=== PATIENT | male | born 1955 | race Caucasian/White ===

== ENCOUNTER 2017-10-04 23:02 | Emergency (ER) | payer MEDICARE ==
[2017-10-04] MEDS ORDERED: BENADRYL 50 MG/ML IV ONE (23:20)
[2017-10-04] MEDS ORDERED: TORAdol 30 mg Injection IV ONE (23:20)
[2017-10-04 23:29] VITALS: PULSE 68; O2SAT 95
[2017-10-04] MEDS ORDERED: Sodium Chloride 0.9% 1000 ML 1,000 ML IV SCH (23:30)
--- NOTE | 2017-10-04 23:31 | ERPHSYRPT ---
- History of Present Illness Time Seen by Provider: 10/04/17 23:23 Source: patient Exam Limitations: no limitations Physician History: Pt has a history of seizures, developed diffuse headaches around 10 AM today. He is c/o sinus pressures, earaches over the past few days. He and his state, he has been having similar headaches usually before the seizure starts. He did not have a seizure for about 10 months, he takes 1500mg Keppra BID, and Lamictal 25 mg BID. He denies recent fall, trauma, no focal weakness, numbness, visual changes, vomiting, but nauseated and dizzy, had difficulty walking, and slurred speech earlier according to his . His gave him Tylenol at 5 PM. Timing/Duration: hour(s) (13) Quality: dullness, throbbing Head Pain Location: global Severity of Pain-Max: moderate Severity of Pain-Current: moderate Recent Head Trauma: no recent headache/trauma, occasional headaches Modifying Factors: Improves With: movement Associated Symptoms: dizziness, nausea/vomiting, seizures, trouble walking Previous symptoms: same symptoms as today Allergies/Adverse Reactions: Penicillins Allergy (Verified 10/04/17 23:09) Home Medications: Alprazolam 0.5 mg [xanAX 0.5 MG] 0.5 mg PO DAILY 10/04/17 [History] Bisoprolol/Hydrochlorothiazide [Bisoprolol-Hctz 10-6.25 mg Tab] 1 tab PO DAILY 10/04/17 [History] Pravastatin Sodium 40 mg PO HS 10/04/17 [History] Sertraline HCl 100 mg PO DAILY 10/04/17 [History] lamoTRIgine [Lamotrigine] 25 mg PO BID 10/04/17 [History] levETIRAcetam [Levetiracetam] 2 tab PO BID 10/04/17 [History] - Review of Systems Constitutional: No Symptoms Ears, Nose, & Throat: Ear Pain, Sinus Drainage Respiratory: Dyspnea, No Cough Cardiac: No Chest Pain, No Edema Abdominal/Gastrointestinal: Nausea, No Abdominal Pain, No Vomiting Neurological: Dizziness, Headache, Seizure, Speech Changes, Vertigo, No Focal Weakness, No Lethargy, No Parasthesia All Other Systems: Reviewed and Negative - Nursing Vital Signs Nursing Vital Signs: Initial Vital Signs Pulse Rate 68 10/04/17 23:10 Blood Pressure 154/93 10/04/17 23:10 O2 Sat by Pulse Oximetry 95 10/04/17 23:10 Pain Scale Pain Intensity 1 - Physical Exam General Appearance: no apparent distress Eye Exam: PERRL/EOMI, eyes nml inspection Ears, Nose, Throat Exam: normal ENT inspection, TMs normal, pharynx normal, moist mucous membranes Neck Exam: normal inspection, non-tender, supple, full range of motion, No carotid bruit, No JVD Respiratory Exam: normal breath sounds, lungs clear, airway intact, No chest tenderness Cardiovascular Exam: regular rate/rhythm, normal heart sounds, normal peripheral pulses, No murmur Gastrointestinal/Abdominal Exam: soft, normal bowel sounds, No tenderness Back Exam: normal inspection, No CVA tenderness Extremity Exam: normal inspection Mental Status Exam: alert, oriented x 3, cooperative, No lethargy shape carver Exam: normal hearing, normal speech, PERRL, No facial droop Coordination/Gait Exam: normal finger to nose, normal gait, normal cerebellar function Motor/Sensory Exam: no motor deficit Skin Exam: normal color, warm, dry, No rash Lymphatic Exam: No adenopathy SpO2 Interpretation: normal Oxygen Delivery: Room Air - Course Nursing assessment & vital signs reviewed: Yes EKG Interpreted by Me: RATE (66/min), NORMAL AXIS, NORMAL INTERVALS, Non- specific ST Changes - CT Exams Head CT Interpretation: Negative, Tele-radiologist Report Ordered Tests: Active Orders 24 hr Category Date Time Status Employment Supervisor STAT Care 10/04/17 23:21 Active EKG-ER Only STAT Care 10/04/17 23:22 Active IV Insertion STAT Care 10/04/17 23:20 Active Oxygen-ED Only NASAL CANNULA 2 lpm Care 10/04/17 23:20 Active HEAD WITHOUT CONTRAST [CT] Stat Exams 10/04/17 23:20 Taken CBC W DIFF Stat Lab 10/04/17 23:30 Completed CMP Stat Lab 10/04/17 23:30 Completed Erythrocyte Sedimentation Rate Stat Lab 10/04/17 23:30 Completed MAGNESIUM Stat Lab 10/04/17 23:30 Completed NT PRO BNP Stat Lab 10/04/17 23:30 Completed PROTIME WITH INR Stat Lab 10/04/17 23:30 Completed TROPONIN Q3H Lab 10/04/17 23:30 Completed TROPONIN Q3H Lab 10/05/17 02:30 Ordered TROPONIN Q3H Lab 10/05/17 05:30 Ordered TROPONIN Q3H Lab 10/05/17 08:30 Ordered TROPONIN Q3H Lab 10/05/17 11:30 Ordered UA W/ MICROSCOPIC Stat Lab 10/04/17 00:30 Completed Urine Triage Profile Stat Lab 10/04/17 23:20 Completed Medication Summary Generic Name Dose Route Start Last Admin Trade Name Freq PRN Reason Stop Dose Admin Sodium Chloride 1,000 mls @ 100 mls/hr 10/04/17 23:30 10/04/17 23:43 Sodium Chloride 0.9% 1000 Ml IV 11/03/17 23:29 100 mls/hr .Q10H SHERIN Administration Discontinued Medications Generic Name Dose Route Start Last Admin Trade Name Freq PRN Reason Stop Dose Admin Diphenhydramine HCl 25 mg 10/04/17 23:20 10/04/17 23:43 Benadryl 50 Mg/Ml IV 10/04/17 23:21 25 mg STAT ONE Administration Diphenhydramine HCl Confirm 10/04/17 23:38 Benadryl 50 Mg/Ml Administered 10/04/17 23:39 Dose 50 mg .ROUTE .STK-MED ONE Ketorolac Tromethamine 30 mg 10/04/17 23:20 10/04/17 23:44 Toradol 30 Mg Injection IV 10/04/17 23:21 30 mg STAT ONE Administration Ketorolac Tromethamine Confirm 10/04/17 23:38 Toradol 30 Mg Injection Administered 10/04/17 23:39 Dose 30 mg .ROUTE .STK-MED ONE Lab/Rad Data: Laboratory Result Diagrams 10/04/17 23:30 10/04/17 23:30 Laboratory Results 10/05/17 10/04/17 10/04/17 Range/Units 00:30 23:30 23:30 WBC (4.0-10.5) K/mm3 RBC (4.1-5.6) M/mm3 Hgb (12.5-18.0) gm/dl Hct (42-50) % MCV (78-100) fl MCH (26-32) pg MCHC (32-36) g/dl RDW (11.5-14.0) % Plt Count (150-450) K/mm3 MPV (6-9.5) fl Gran % (36.0-66.0) % Eos # (Auto) (0-0.5) Absolute Lymphs (auto) (1.0-4.6) Absolute Monos (auto) (0.0-1.3) Lymphocytes % (24.0-44.0) % Monocytes % (0.0-12.0) % Eosinophils % (0.00-5.0) % Basophils % (0.0-0.4) % Absolute Granulocytes (1.4-6.9) Basophils # (0-0.4) ESR (0-15) mm/hr PT 11.9 (8.83-12.87) SECONDS INR 1.02 (0.8-3.0) Sodium (137-145) mmol/L Potassium (3.5-5.1) mmol/L Chloride (98-107) mmol/L Carbon Dioxide (22-30) mmol/L Anion Gap (5-15) MEQ/L BUN (9-20) mg/dL Creatinine (0.66-1.25) mg/dL Estimated GFR ML/MIN Glucose (74-106) mg/dL Calcium (8.4-10.2) mg/dL Magnesium (1.6-2.3) mg/dL Total Bilirubin (0.2-1.3) mg/dL AST (17-59) U/L ALT (0-50) U/L Alkaline Phosphatase (38-126) U/L Troponin I < 0.012 (0.000-0.034) ng/mL NT-Pro-B Natriuret Pep (0-900) pg/mL Serum Total Protein (6.3-8.2) g/dL Albumin (3.5-5.0) g/dL Ur Collection Type Urine Color (YELLOW) Urine Appearance (CLEAR) Urine pH (5-6) Ur Specific [place] (1.005-1.025) Urine Protein (Negative) Urine Ketones (NEGATIVE) Urine Blood (0-5) Patrice/ul Urine Nitrite (NEGATIVE) Urine Bilirubin (NEGATIVE) Urine Urobilinogen (0-1) mg/dL Ur Leukocyte Esterase (NEGATIVE) Urine Microscopic WBC (0-5) /HPF Ur Epithelial Cells (FEW) /HPF Calcium Oxalate Crystal (NEGATIVE) /HPF Urine Mucus (NEGATIVE) /HPF Urine Culture Reflexed (NO) Urine Glucose (NEGATIVE) mg/dL Urine Opiates Level NEGATIVE (NEGATIVE) Ur Methadone NEGATIVE (NEGATIVE) Urine Barbiturates NEGATIVE (NEGATIVE) Ur Phencyclidine (PCP) NEGATIVE (NEGATIVE) Urine Amphetamine NEGATIVE (NEGATIVE) U Benzodiazepine Level POSITIVE (NEGATIVE) Urine Cocaine NEGATIVE (NEGATIVE) Urine Marijuana (THC) NEGATIVE (NEGATIVE) Specimen Received 10/04/17 10/04/17 10/04/17 Range/Units 23:30 23:30 00:30 WBC 8.4 (4.0-10.5) K/mm3 RBC 4.95 (4.1-5.6) M/mm3 Hgb 14.8 (12.5-18.0) gm/dl Hct 42.7 (42-50) % MCV 86.3 (78-100) fl MCH 29.9 (26-32) pg MCHC 34.7 (32-36) g/dl RDW 13.3 (11.5-14.0) % Plt Count 144 L (150-450) K/mm3 MPV 12.2 H (6-9.5) fl Gran % 52.9 (36.0-66.0) % Eos # (Auto) 0.34 (0-0.5) Absolute Lymphs (auto) 3.08 (1.0-4.6) Absolute Monos (auto) 0.53 (0.0-1.3) Lymphocytes % 36.6 (24.0-44.0) % Monocytes % 6.3 (0.0-12.0) % Eosinophils % 4.0 (0.00-5.0) % Basophils % 0.2 (0.0-0.4) % Absolute Granulocytes 4.44 (1.4-6.9) Basophils # 0.02 (0-0.4) ESR 7 (0-15) mm/hr PT (8.83-12.87) SECONDS INR (0.8-3.0) Sodium 145 (137-145) mmol/L Potassium 3.7 (3.5-5.1) mmol/L Chloride 106 (98-107) mmol/L Carbon Dioxide 26 (22-30) mmol/L Anion Gap 16.1 H (5-15) MEQ/L BUN 11 (9-20) mg/dL Creatinine 0.73 (0.66-1.25) mg/dL Estimated GFR > 60.0 ML/MIN Glucose 143 H (74-106) mg/dL Calcium 9.9 (8.4-10.2) mg/dL Magnesium 1.8 (1.6-2.3) mg/dL Total Bilirubin 0.30 (0.2-1.3) mg/dL AST 21 (17-59) U/L ALT 22 (0-50) U/L Alkaline Phosphatase 122 (38-126) U/L Troponin I (0.000-0.034) ng/mL NT-Pro-B Natriuret Pep 230 (0-900) pg/mL Serum Total Protein 7.4 (6.3-8.2) g/dL Albumin 4.7 (3.5-5.0) g/dL Ur Collection Type CCMS Urine Color YELLOW (YELLOW) Urine Appearance CLEAR (CLEAR) Urine pH 5.0 (5-6) Ur Specific [place] 1.030 (1.005-1.025) Urine Protein TRACE (Negative) Urine Ketones NEGATIVE (NEGATIVE) Urine Blood NEGATIVE (0-5) Patrice/ul Urine Nitrite NEGATIVE (NEGATIVE) Urine Bilirubin NEGATIVE (NEGATIVE) Urine Urobilinogen NORMAL (0-1) mg/dL Ur Leukocyte Esterase NEGATIVE (NEGATIVE) Urine Microscopic WBC 2-5 (0-5) /HPF Ur Epithelial Cells FEW (FEW) /HPF Calcium Oxalate Crystal 0-2 (NEGATIVE) /HPF Urine Mucus SLIGHT (NEGATIVE) /HPF Urine Culture Reflexed NO (NO) Urine Glucose NEGATIVE (NEGATIVE) mg/dL Urine Opiates Level (NEGATIVE) Ur Methadone (NEGATIVE) Urine Barbiturates (NEGATIVE) Ur Phencyclidine (PCP) (NEGATIVE) Urine Amphetamine (NEGATIVE) U Benzodiazepine Level (NEGATIVE) Urine Cocaine (NEGATIVE) Urine Marijuana (THC) (NEGATIVE) Specimen Received 10-05-17 0040 - Progress Progress: improved Air Movement: good Progress Note: 10/05/17 00:56 Pt states his headaches resolved, feels better, denies dizziness, he ambulates alone, without ataxia, feels stable, no vertigo, nausea, chest pain or SOB, no fever. I discussed our results with him, he feels stable to go home and follow up with his doctor next week. I suggested to keep taking his seizure medications without change, return if severe headaches, dizziness, vomiting, or difficulty walking! Counseled pt/family regarding: lab results, diagnosis, need for follow-up, rad results - Departure Time of Disposition: 00:58 Departure Disposition: Home Clinical Impression: Generalized headaches Condition: Stable Critical Care Time: No Referrals: MARTIN MORALES MD [Primary Care Provider] - Instructions: Headache, Adult (DC), Seizures, Adult (DC) Additional Instructions: Rest x 1-2 days, drink plenty of fluids, follow up with your physician in 2-3 days, return if severe headaches, nausea, dizziness, difficulty walking or seizures!
[2017-10-04 23:33] LABS: BASOPHIL % 0.2 % (0.0-0.4); Basophil (Absolute #) 0.02 (0-0.4); Eosinophil (Absolute #) 0.34 (0-0.5); Granulocyte Absolute (ANC) 4.44 (1.4-6.9); Granulocytes % 52.9 % (36.0-66.0); Hematocrit 42.7 % (42-50); Hemoglobin 14.8 gm/dl (12.5-18.0); Lymphocyte (Absolute #) 3.08 (1.0-4.6); Lymphocytes % 36.6 % (24.0-44.0); Mean Cell Volume 86.3 fl (78-100); Mean Corpuscular Hemoglobin 29.9 pg (26-32); Mean Corpuscular Hgb Concent. 34.7 g/dl (32-36); Mean Platelet Volume 12.2 fl (6-9.5); Monocyte (Absolute #) 0.53 (0.0-1.3); Monocytes % 6.3 % (0.0-12.0); Platelet Count 144 K/mm3 (150-450); Red Blood Count 4.95 M/mm3 (4.1-5.6); Red Cell Distribution Width 13.3 % (11.5-14.0); White Blood Count 8.4 K/mm3 (4.0-10.5)
[2017-10-04] MEDS ORDERED: BENADRYL 50 MG/ML ONE (23:38)
[2017-10-04] MEDS ORDERED: TORAdol 30 mg Injection ONE (23:38)
[2017-10-04] MEDS ORDERED: Sodium Chloride 0.9% 1000 ML 1,000 ML ONE (23:38)
[2017-10-04 23:57] LABS: INR 1.02 (0.8-3.0)
[2017-10-05 00:01] LABS: Erythrocyte Sedimentation Rate 7 mm/hr (0-15)
[2017-10-05 00:40] VITALS: BP 147/86
[2017-10-05 00:42] LABS: Appearance CLEAR (CLEAR); Bilirubin NEGATIVE (NEGATIVE); Blood NEGATIVE Ery/ul (0-5); Glucose NEGATIVE (NEGATIVE); Ketones NEGATIVE (NEGATIVE); Leukocyte Esterase NEGATIVE (NEGATIVE); Nitrite NEGATIVE (NEGATIVE); Protein,Urine Dip TRACE (Negative); Urobilinogen NORMAL mg/dL (0-1)
[2017-10-05 00:43] LABS: Calcium Oxalate Crystals 0-2 /HPF (NEGATIVE); Epithelial Cells FEW /HPF (FEW); Mucus SLIGHT /HPF (NEGATIVE)
[2017-10-05 00:44] LABS: ALBUMIN 4.7 g/dL (3.5-5.0); ALKALINE PHOSPHATASE 122 U/L (38-126); ANION GAP 16.1 MEQ/L (5-15); BLOOD UREA NITROGEN 11 mg/dL (9-20); CHLORIDE 106 mmol/L (98-107); Calcium 9.9 mg/dL (8.4-10.2); Carbon Dioxide 26 mmol/L (22-30); Creatinine 1 0.73 mg/dL (0.66-1.25); Glucose 143 mg/dL (74-106); NT PRO BNP 230 pg/mL (0-900); Potassium 3.7 mmol/L (3.5-5.1); SGOT/AST 21 U/L (17-59); SGPT/ALT 22 U/L (0-50); SODIUM 145 mmol/L (137-145); Total Protein 7.4 g/dL (6.3-8.2)
[2017-10-05 00:45] LABS: Amphetamine,Urine NEGATIVE (NEGATIVE); Barbiturate,Urine NEGATIVE (NEGATIVE); Benzodiazepine,Urine POSITIVE (NEGATIVE); Cocaine,Urine NEGATIVE (NEGATIVE); Methadone,Urine NEGATIVE (NEGATIVE); Opiate,Urine NEGATIVE (NEGATIVE); PCP,Urine NEGATIVE (NEGATIVE); THC,Urine NEGATIVE (NEGATIVE)
--- NOTE | 2017-10-05 09:03 | XRAY ---
Indication: Headache. No known injury. History of epilepsy. Multiple contiguous axial images obtained through the head without contrast. Comparison: None Normal appearing brain parenchyma, ventricles, and bony calvarium for patient's age. Visualized paranasal sinuses and mastoid air cells are clear. Impression: Normal CT head without contrast exam. Comment: Preliminary interpretation was made by [facility]. No discrepancy. CT DI 70.21
== END 2017-10-05 01:03 | disposition home or self-care (01) ==
LOC: ED 23:02
DX: R51 Headache (principal); R42 Dizziness and giddiness; R11.2 Nausea with vomiting, unspecified; R26.2 Difficulty in walking, not elsewhere classified; Z79.899 Other long term (current) drug therapy
CPT/HCPCS: 36000; 36415; 70450; 80053; 80177; 80307; 81000; 83735; 83880; 84484; 85025; 85610; 85652; 93005; 93041; 96360; 96374; 96375; 99285; J1200; J1885

== ENCOUNTER 2019-10-16 17:46 | Emergency (ER) | payer MEDICARE ==
[2019-10-16] MEDS ORDERED: TORAdol 30 mg Injection IM ONE (18:09)
[2019-10-16 18:11] VITALS: PULSE 68
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
[2019-10-16 18:16] VITALS: O2SAT 98
[2019-10-16] MEDS ORDERED: TORAdol 30 mg Injection ONE (18:29)
[2019-10-16 19:07] VITALS: BP 127/71
[2019-10-16 19:23] LABS: Appearance SLIGHTLY CLOUDY (CLEAR); Bilirubin MODERATE (NEGATIVE); Blood NEGATIVE Ery/ul (0-5); Epithelial Cells RARE /HPF (FEW); Glucose NEGATIVE (NEGATIVE); Hyaline Casts 0-2 /LPF (0-2); Ketones NEGATIVE (NEGATIVE); Leukocyte Esterase TRACE (NEGATIVE); Mucus SLIGHT /HPF (NEGATIVE); Nitrite NEGATIVE (NEGATIVE); Protein,Urine Dip 30 (Negative); RBC 0-2 /HPF (0-2); Specific Gravity 1.023 (1.005-1.025); Urobilinogen 4 mg/dL (0-1)
[2019-10-16 19:28] LABS: Bacteria NONE SEEN /HPF (NEGATIVE)
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
== END 2019-10-16 19:48 | disposition home or self-care (01) ==
LOC: ED 17:46
DX: S39.012A Strain of muscle, fascia and tendon of lower back, initial encounter (principal); V89.2XXA Person injured in unspecified motor-vehicle accident, traffic, initial encounter; Y93.9 Activity, unspecified; Y92.9 Unspecified place or not applicable; M62.830 Muscle spasm of back
CPT/HCPCS: 72100; 81001; 87086; 96372; 99284; J1885

== ENCOUNTER 2020-02-24 18:27 | Emergency (ER) | payer MEDICARE ==
[2020-02-24 18:42] VITALS: O2SAT 99
[2020-02-24] MEDS ORDERED: Sodium Chloride 0.9% 1000 ML 1,000 ML IV STA (18:55)
[2020-02-24] MEDS ORDERED: Sodium Chloride 0.9% 1000 ML 1,000 ML ONE (19:12)
--- NOTE | 2020-02-24 19:14 | ERPHSYRPT ---
- History of Present Illness Historian: patient Exam Limitations: no limitations Patient Subjective Stated Complaint: Pt states that his left abdomen has been hurting for a couple of weeks and hurts when he has a bowel movement and then continues to hurt afterwards, hurts when he eats food Triage Nursing Assessment: Pt brought to the ER by his , vitals wnl, pain with palpatation to the left quadrants, denies blood in stool, denies vomiting, rates pain as 9.5/10, pulses normal, pt does not appear to be in any distress Physician History: 64 yo wm who was Covid+ 2 wks ago presents w periumbilical pain rated a 0 at present and diarrhea since being diagnosed w Covid. He has had nausea wo vomiting/melena/hematochezia/dysuria/hematuria/cough/coryza. Timing/Duration: week(s) (2wks) Activities at Onset: none Quality: aching Abdominal Pain Onset Location: periumbilical Pain Radiation: no radiation Severity of Pain-Max: moderate Severity of Pain-Current: none Modifying Factors: Improves With: movement Associated Symptoms: diarrhea, loss of appetite, nausea, No back, No chest pain, No diaphoresis, No fever/chills, No fatigue, No headache, No heartburn, No neck pain, No rash, No shortness of breath, No syncope, No testicular pain, No vomiting, No weakness Previous symptoms: no prior history Allergies/Adverse Reactions: Penicillins Allergy (Verified 02/24/20 18:41) Home Medications: Alprazolam 0.5 mg [xanAX 0.5 MG] 0.5 mg PO DAILY 10/04/17 [History] Bisoprolol/Hydrochlorothiazide [Bisoprolol-Hctz 10-6.25 mg Tab] 1 tab PO DAILY 10/04/17 [History] Pravastatin Sodium 40 mg PO HS 10/04/17 [History] Sertraline HCl 100 mg PO DAILY 10/04/17 [History] lamoTRIgine [Lamotrigine] 25 mg PO BID 10/04/17 [History] levETIRAcetam [Levetiracetam] 2 tab PO BID 10/04/17 [History] Hx Tetanus, Diphtheria Vaccination/Date Given: No Hx Influenza Vaccination/Date Given: No Hx Pneumococcal Vaccination/Date Given: No Travel Risk - International Travel Have you traveled outside of the country in past 3 weeks: No - Coronavirus Screening Are you exhibiting any of the following symptoms?: No Close contact with a COVID-19 positive Pt in past 14-21 Days: Yes - Review of Systems Constitutional: No Symptoms, Weakness Eyes: No Symptoms Ears, Nose, & Throat: No Symptoms Respiratory: No Symptoms Cardiac: No Symptoms Abdominal/Gastrointestinal: Abdominal Pain, Nausea, Diarrhea, No Vomiting Genitourinary Symptoms: No Symptoms Musculoskeletal: No Symptoms Skin: No Symptoms Neurological: No Symptoms Psychological: No Symptoms Endocrine: No Symptoms Hematologic/Lymphatic: No Symptoms Immunological/Allergic: No Symptoms - Past Medical History Pertinent Past Medical History: Yes Neurological History: Epilepsy Cardiac History: High Cholesterol, Hypertension GI Medical History: GI Bleed, Other Other Medical History: perforated bowel, covid 19 - Past Surgical History Past Surgical History: No - Social History Smoking Status: Former smoker Exposure to second hand smoke: No Drug Use: none Patient Lives Alone: No Significant Family History: no pertinent family hx - Nursing Vital Signs Nursing Vital Signs: Initial Vital Signs Temperature 97.5 F 02/24/20 18:33 Pulse Rate 66 02/24/20 18:33 Blood Pressure 134/81 02/24/20 18:33 O2 Sat by Pulse Oximetry 99 02/24/20 18:33 Pain Scale Pain Intensity 0 - Physical Exam General Appearance: no apparent distress Eye Exam: PERRL/EOMI, eyes nml inspection Ears, Nose, Throat Exam: normal ENT inspection, TMs normal, pharynx normal, moist mucous membranes Neck Exam: normal inspection, non-tender, supple, full range of motion, No meningismus, No mass, No Brudzinski, No Kernig's Respiratory Exam: normal breath sounds, lungs clear, airway intact, No respiratory distress Cardiovascular Exam: regular rate/rhythm, normal heart sounds, normal peripheral pulses, No murmur Gastrointestinal/Abdomen Exam: soft, tenderness (Mild periumbilical ttp/No guarding or rebound) Back Exam: normal inspection, normal range of motion, No CVA tenderness Extremity Exam: normal inspection, normal range of motion Neurologic Exam: alert, oriented x 3, cooperative, 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, normal mood/affect, sensation nml, No motor deficits, No sensory deficit Skin Exam: normal color, warm Lymphatic Exam: No adenopathy SpO2 Interpretation: normal SpO2: 99 O2 Delivery: Room Air Ordered Tests: Active Orders 24 hr Category Date Time Status AMYLASE Stat Lab 02/24/20 19:30 Completed CBC W DIFF Stat Lab 02/24/20 19:30 Completed CMP Stat Lab 02/24/20 19:30 Completed LIPASE Stat Lab 02/24/20 19:30 Completed TROPONIN Q3H Lab 02/24/20 19:30 Completed TROPONIN Q3H Lab 02/24/20 22:00 Ordered UA W/RFX UR CULTURE Stat Lab 02/24/20 19:33 Completed Medication Summary Discontinued Medications Generic Name Dose Route Start Last Admin Trade Name Freq PRN Reason Stop Dose Admin Sodium Chloride 1,000 mls @ 999 mls/hr 02/24/20 18:55 02/24/20 20:26 Sodium Chloride 0.9% 1000 Ml IV 02/24/20 19:55 Infused .Q1H1M STA Infusion Sodium Chloride Confirm 02/24/20 19:12 Sodium Chloride 0.9% 1000 Ml Administered 02/24/20 19:13 Dose 1,000 mls @ ud .ROUTE .STK-MED ONE Lab/Rad Data: Laboratory Result Diagrams 02/24/20 19:30 02/24/20 19:30 Laboratory Results 02/24/20 02/24/20 02/24/20 Range/Units 19:33 19:30 19:30 WBC (4.0-10.5) K/mm3 RBC (4.1-5.6) M/mm3 Hgb (12.5-18.0) gm/dl Hct (42-50) % MCV (78-100) fl MCH (26-32) pg MCHC (32-36) g/dl RDW (11.5-14.0) % Plt Count (150-450) K/mm3 MPV (7.5-11.0) fl Gran % (36.0-66.0) % Eos # (Auto) (0-0.5) Absolute Lymphs (auto) (1.0-4.6) Absolute Monos (auto) (0.0-1.3) Lymphocytes % (24.0-44.0) % Monocytes % (0.0-12.0) % Eosinophils % (0.00-5.0) % Basophils % (0.0-0.4) % Absolute Granulocytes (1.4-6.9) Basophils # (0-0.4) Sodium 137 (137-145) mmol/L Potassium 3.8 (3.5-5.1) mmol/L Chloride 104 (98-107) mmol/L Carbon Dioxide 26 (22-30) mmol/L Anion Gap 11.5 (5-15) MEQ/L BUN 10 (9-20) mg/dL Creatinine 0.59 L (0.66-1.25) mg/dL Estimated GFR > 60.0 ML/MIN Glucose 178 H (74-106) mg/dL Calcium 9.3 (8.4-10.2) mg/dL Total Bilirubin 0.90 (0.2-1.3) mg/dL AST 28 (17-59) U/L ALT 18 (0-50) U/L Alkaline Phosphatase 54 (38-126) U/L Troponin I < 0.012 (0.000-0.034) ng/mL Serum Total Protein 6.6 (6.3-8.2) g/dL Albumin 3.8 (3.5-5.0) g/dL Amylase 46 (30-110) U/L Lipase 105 (23-300) U/L Urine Color YEE (YELLOW) Urine Appearance SLIGHTLY CLOUDY (CLEAR) Urine pH 5.0 (5-6) Ur Specific [place] 1.026 (1.005-1.025) Urine Protein 30 (Negative) Urine Ketones NEGATIVE (NEGATIVE) Urine Blood NEGATIVE (0-5) Patrice/ul Urine Nitrite NEGATIVE (NEGATIVE) Urine Bilirubin MODERATE (NEGATIVE) Urine Urobilinogen 4 (0-1) mg/dL Ur Leukocyte Esterase NEGATIVE (NEGATIVE) Urine WBC (Auto) NONE (0-5) /HPF Urine RBC (Auto) NONE (0-2) /HPF U Epithel Cells (Auto) NONE (FEW) /HPF Urine Bacteria (Auto) NONE (NEGATIVE) /HPF Urine Mucus (Auto) SLIGHT (NEGATIVE) /HPF Urine Culture Reflexed NO (NO) Urine Glucose NEGATIVE (NEGATIVE) mg/dL 02/23/ Range/Units 19:30 WBC 8.0 (4.0-10.5) K/mm3 RBC 4.62 (4.1-5.6) M/mm3 Hgb 13.4 (12.5-18.0) gm/dl Hct 39.6 L (42-50) % MCV 85.7 (78-100) fl MCH 29.0 (26-32) pg MCHC 33.8 (32-36) g/dl RDW 13.0 (11.5-14.0) % Plt Count 249 (150-450) K/mm3 MPV 11.4 H (7.5-11.0) fl Gran % 79.9 H (36.0-66.0) % Eos # (Auto) 0.14 (0-0.5) Absolute Lymphs (auto) 0.95 L (1.0-4.6) Absolute Monos (auto) 0.52 (0.0-1.3) Lymphocytes % 11.8 L (24.0-44.0) % Monocytes % 6.5 (0.0-12.0) % Eosinophils % 1.7 (0.00-5.0) % Basophils % 0.1 (0.0-0.4) % Absolute Granulocytes 6.41 (1.4-6.9) Basophils # 0.01 (0-0.4) Sodium (137-145) mmol/L Potassium (3.5-5.1) mmol/L Chloride (98-107) mmol/L Carbon Dioxide (22-30) mmol/L Anion Gap (5-15) MEQ/L BUN (9-20) mg/dL Creatinine (0.66-1.25) mg/dL Estimated GFR ML/MIN Glucose (74-106) mg/dL Calcium (8.4-10.2) mg/dL Total Bilirubin (0.2-1.3) mg/dL AST (17-59) U/L ALT (0-50) U/L Alkaline Phosphatase (38-126) U/L Troponin I (0.000-0.034) ng/mL Serum Total Protein (6.3-8.2) g/dL Albumin (3.5-5.0) g/dL Amylase (30-110) U/L Lipase (23-300) U/L Urine Color (YELLOW) Urine Appearance (CLEAR) Urine pH (5-6) Ur Specific [place] (1.005-1.025) Urine Protein (Negative) Urine Ketones (NEGATIVE) Urine Blood (0-5) Patrice/ul Urine Nitrite (NEGATIVE) Urine Bilirubin (NEGATIVE) Urine Urobilinogen (0-1) mg/dL Ur Leukocyte Esterase (NEGATIVE) Urine WBC (Auto) (0-5) /HPF Urine RBC (Auto) (0-2) /HPF U Epithel Cells (Auto) (FEW) /HPF Urine Bacteria (Auto) (NEGATIVE) /HPF Urine Mucus (Auto) (NEGATIVE) /HPF Urine Culture Reflexed (NO) Urine Glucose (NEGATIVE) mg/dL - Progress Progress Note: 02/24/20 20:26 Pt painfree during stay and abdomen soft/NTTP before discharge. Symptoms most likely due to Covid19. Will not CT Ab/pelvis at this time, but pt instructed to return to ER if pain returns or if temperature greater than 100.5 develops. 1L NS bolus. Counseled pt/family regarding: lab results, diagnosis, need for follow-up - Departure Departure Disposition: Home Clinical Impression: COVID-19, Diarrhea Condition: Stable Critical Care Time: No Referrals: MARTIN MORALES MD [Primary Care Provider] - Instructions: Acute Abdomen (Belly Pain), Adult (DC) Additional Instructions: Return to ER for increasing abdominal pain or temperature greater than 100.5
[2020-02-24 19:44] LABS: Absolute Neutrophil Ct (ANC) 6.41 (1.4-6.9); BASOPHIL % 0.1 % (0.0-0.4); Basophil (Absolute #) 0.01 (0-0.4); Eosinophil % 1.7 % (0.00-5.0); Eosinophil (Absolute #) 0.14 (0-0.5); Hematocrit 39.6 % (42-50); Hemoglobin 13.4 gm/dl (12.5-18.0); Lymphocyte (Absolute #) 0.95 (1.0-4.6); Lymphocytes % 11.8 % (24.0-44.0); Mean Cell Volume 85.7 fl (78-100); Mean Corpuscular Hgb Concent. 33.8 g/dl (32-36); Mean Platelet Volume 11.4 fl (7.5-11.0); Monocyte (Absolute #) 0.52 (0.0-1.3); Monocytes % 6.5 % (0.0-12.0); Neutrophil % 79.9 % (36.0-66.0); Platelet Count 249 K/mm3 (150-450); Red Blood Count 4.62 M/mm3 (4.1-5.6)
[2020-02-24 20:01] LABS: ALBUMIN 3.8 g/dL (3.5-5.0); ALKALINE PHOSPHATASE 54 U/L (38-126); AMYLASE 46 U/L (30-110); ANION GAP 11.5 MEQ/L (5-15); BLOOD UREA NITROGEN 10 mg/dL (9-20); CHLORIDE 104 mmol/L (98-107); Calcium 9.3 mg/dL (8.4-10.2); Carbon Dioxide 26 mmol/L (22-30); Creatinine 1 0.59 mg/dL (0.66-1.25); EST GLOMERULAR FILTRATION RATE > 60.0 ML/MIN; Glucose 178 mg/dL (74-106); LIPASE 105 U/L (23-300); SGOT/AST 28 U/L (17-59); SGPT/ALT 18 U/L (0-50); SODIUM 137 mmol/L (137-145); Total Protein 6.6 g/dL (6.3-8.2)
[2020-02-24 20:04] LABS: Potassium 3.8 mmol/L (3.5-5.1)
[2020-02-24 20:11] LABS: Appearance SLIGHTLY CLOUDY (CLEAR); Bilirubin MODERATE (NEGATIVE); Blood NEGATIVE Ery/ul (0-5); Glucose NEGATIVE (NEGATIVE); Ketones NEGATIVE (NEGATIVE); Leukocyte Esterase NEGATIVE (NEGATIVE); Mucus SLIGHT /HPF (NEGATIVE); Nitrite NEGATIVE (NEGATIVE); Protein,Urine Dip 30 (Negative); Specific Gravity 1.026 (1.005-1.025); Urobilinogen 4 mg/dL (0-1)
[2020-02-24 20:21] VITALS: BP 134/82; PULSE 79
== END 2020-02-24 20:42 | disposition home or self-care (01) ==
LOC: ED 18:27
DX: R10.32 Left lower quadrant pain (principal); U07.1 COVID-19; R19.7 Diarrhea, unspecified; R11.0 Nausea; E78.5 Hyperlipidemia, unspecified; I10 Essential (primary) hypertension; Z79.899 Other long term (current) drug therapy
CPT/HCPCS: 36000; 36415; 80053; 81001; 82150; 83690; 84484; 85025; 99284

== ENCOUNTER 2021-02-19 15:25 | Emergency (ER) | payer MEDICARE ==
[2021-02-19] MEDS ORDERED: BABY ASPIRIN 81 MG CHEW PO ONE (15:29)
--- NOTE | 2021-02-19 15:42 | ERPHSYRPT ---
- History of Present Illness Time Seen by Provider: 02/19/21 15:35 Historian: patient Exam Limitations: no limitations Patient Subjective Stated Complaint: pt began having chest pain for the past couple of days but then states that he has a heaviness in his left leg and left arm too, pt states that he has been sleeping a lot for the past couple of days Triage Nursing Assessment: Pt brought to the ER by his , hypertensive, rates overall pain as 3/10, states that his pain is a heaviness all on his left side and not really pain, pulses normal, skin n/w/d, no facial droop, no deficits, no difficulty breathing, no cardiac hx, doesn't appear to be in any distress Physician History: This is a 65-year-old white male who is a patient of Dr. Morales and presents with central, substernal chest pressure and heaviness. The chest pain he has is nonradiating. There is also associated left upper and lower extremity he aviness. He says he has been sleeping more in the last 2 to 3 days along with the above symptoms. Patient has a history of anxiety, elevated cholesterol, epilepsy and hypertension. Patient states that he took all his medications today. He is not short of breath. He has no abdominal pain. He has no nausea vomiting or diarrhea. Timing/Duration: day(s) (2 to 3) Activities at Onset: none Quality: pressure, other (Heaviness) Location: substernal, central Chest Pain Radiation: no radiation Severity of Pain-Max: mild Severity of Pain-Current: mild Modifying Factors: Improves With: nothing Associated Symptoms: denies symptoms Prior Chest Pain/Cardiac Workup: no prior chest pain Nitro Today/Relief: no nitro taken today Aspirin Treatment Today: 325 mg x 1, provided by ED Allergies/Adverse Reactions: Penicillins Allergy (Verified 02/19/21 15:42) Home Medications: ALPRAZolam 0.5 MG [xanAX 0.5 MG] 0.5 mg PO DAILY 10/04/17 [History] Bisoprolol/Hydrochlorothiazide [Bisoprolol-Hctz 10-6.25 mg Tab] 1 tab PO DAILY 10/04/17 [History] Pravastatin Sodium 40 mg PO HS 10/04/17 [History] Sertraline HCl 100 mg PO DAILY 10/04/17 [History] lamoTRIgine [Lamotrigine] 25 mg PO BID 10/04/17 [History] levETIRAcetam [Levetiracetam] 2 tab PO BID 10/04/17 [History] Hx Tetanus, Diphtheria Vaccination/Date Given: No Hx Influenza Vaccination/Date Given: No Hx Pneumococcal Vaccination/Date Given: No Travel Risk - International Travel Have you traveled outside of the country in past 3 weeks: No - Coronavirus Screening Are you exhibiting any of the following symptoms?: No Close contact with a COVID-19 positive Pt in past 14-21 Days: No - Vaccine Status Have you recieved a Covid-19 vaccination: Yes 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: [employer] - Vaccination Dates Date of 2cond Vaccination (if applicable): unknown - Review of Systems Constitutional: No Symptoms Eyes: No Symptoms Ears, Nose, & Throat: No Symptoms Respiratory: No Symptoms Cardiac: Chest Pain (Described as pressure and heaviness) Abdominal/Gastrointestinal: No Symptoms Genitourinary Symptoms: No Symptoms Musculoskeletal: Other (Left side heaviness) Skin: No Symptoms Neurological: No Symptoms Psychological: No Symptoms Endocrine: No Symptoms Hematologic/Lymphatic: No Symptoms Immunological/Allergic: No Symptoms All Other Systems: Reviewed and Negative - Past Medical History Pertinent Past Medical History: Yes Neurological History: Epilepsy Cardiac History: High Cholesterol, Hypertension GI Medical History: GI Bleed, Other Other Medical History: perforated bowel, covid 19 - Past Surgical History Past Surgical History: No - Social History Smoking Status: Former smoker Exposure to second hand smoke: No Drug Use: none Patient Lives Alone: No Significant Family History: no pertinent family hx - Nursing Vital Signs Nursing Vital Signs: Initial Vital Signs Temperature 97.2 F 02/19/21 15:26 Pulse Rate 80 02/19/21 15:26 Respiratory Rate 22 02/19/21 15:26 Blood Pressure 178/104 02/19/21 15:26 O2 Sat by Pulse Oximetry 99 02/19/21 15:26 Pain Scale Pain Intensity 3 - Physical Exam General Appearance: no apparent distress, alert Eye Exam: PERRL/EOMI, eyes nml inspection Ears, Nose, Throat Exam: normal ENT inspection, moist mucous membranes Neck Exam: normal inspection, non-tender, supple, full range of motion Respiratory Exam: normal breath sounds, chest tenderness (Described as a substernal nonradiating central heaviness), lungs clear, airway intact, No respiratory distress Cardiovascular Exam: regular rate/rhythm, normal heart sounds, normal peripheral pulses Gastrointestinal/Abdomen Exam: soft, normal bowel sounds, No tenderness Rectal Exam: not done Back Exam: normal inspection, normal range of motion, No CVA tenderness, No vertebral tenderness Extremity Exam: normal inspection, normal range of motion, pelvis stable Neurologic Exam: alert, oriented x 3, cooperative, 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 No significant change from from comparison EKG dated 10/14/2017) Ordered Tests: Active Orders 24 hr Category Date Time Status EKG-ER Only STAT Care 02/19/21 15:29 Active IV Insertion STAT Care 02/19/21 15:29 Active Pulse Oximetry (ED) STAT Care 02/19/21 15:29 Active CHEST 1 VIEW (PORTABLE) Stat Exams 02/19/21 15:29 Completed CHEST WITH CONTRAST [CT] Stat Exams 02/19/21 17:14 Taken HEAD WITHOUT CONTRAST [CT] Stat Exams 02/19/21 15:42 Completed CBC W DIFF Stat Lab 02/19/21 16:04 Completed CMP Stat Lab 02/19/21 16:04 Completed D-DIMER QUANTITATIVE Stat Lab 02/19/21 16:04 Completed NT PRO BNP Stat Lab 02/19/21 16:04 Completed PROTIME WITH INR Stat Lab 02/19/21 16:04 Completed TROPONIN Q3H Lab 02/19/21 16:04 Completed TROPONIN Q3H Lab 02/19/21 18:08 Received TROPONIN Q3H Lab 02/19/21 21:30 Ordered TROPONIN Q3H Lab 02/20/21 00:30 Ordered TROPONIN Q3H Lab 02/20/21 03:30 Ordered Medication Summary Discontinued Medications Generic Name Dose Route Start Last Admin Trade Name Freq PRN Reason Stop Dose Admin Aspirin 324 mg 02/19/21 15:29 02/19/21 15:34 Aspirin 81 Mg Tab.Chew PO 02/19/21 15:30 324 mg STAT ONE Administration Sodium Chloride 500 mls @ 500 mls/hr 02/19/21 17:14 02/19/21 18:44 Sodium Chloride 0.9% 500 Ml IV 02/19/21 18:13 Infused .Q1H ONE Infusion Sodium Chloride Confirm 02/19/21 17:22 Sodium Chloride 0.9% 500 Ml Administered 02/19/21 17:23 Dose 500 mls @ ud IV .STK-MED ONE Lab/Rad Data: Laboratory Result Diagrams 02/19/21 16:04 02/19/21 16:04 Laboratory Results 02/19/21 02/19/21 02/19/21 Range/Units 16:04 16:04 16:04 WBC (4.0-10.5) K/mm3 RBC (4.1-5.6) M/mm3 Hgb (12.5-18.0) gm/dl Hct (42-50) % MCV (78-100) fl MCH (26-32) pg MCHC (32-36) g/dl RDW (11.5-14.0) % Plt Count (150-450) K/mm3 MPV (7.5-11.0) fl Gran % (36.0-66.0) % Eos # (Auto) (0-0.5) Absolute Lymphs (auto) (1.0-4.6) Absolute Monos (auto) (0.0-1.3) Lymphocytes % (24.0-44.0) % Monocytes % (0.0-12.0) % Eosinophils % (0.00-5.0) % Basophils % (0.0-0.4) % Absolute Granulocytes (1.4-6.9) Basophils # (0-0.4) PT 12.0 (9.4-12.5) SECONDS INR 1.02 (0.8-3.0) D-Dimer 810 H* (215-500) ng/mL Sodium 142 (137-145) mmol/L Potassium 3.7 (3.5-5.1) mmol/L Chloride 102 (98-107) mmol/L Carbon Dioxide 30 (22-30) mmol/L Anion Gap 14.3 (5-15) MEQ/L BUN 11 (9-20) mg/dL Creatinine 0.96 (0.66-1.25) mg/dL Estimated GFR > 60.0 ML/MIN Glucose 117 H (74-106) mg/dL Calcium 9.8 (8.4-10.2) mg/dL Total Bilirubin 0.60 (0.2-1.3) mg/dL AST 29 (17-59) U/L ALT 28 (0-50) U/L Alkaline Phosphatase 115 (38-126) U/L Troponin I < 0.012 (0.000-0.034) ng/mL NT-Pro-B Natriuret Pep 424 (0-900) pg/mL Serum Total Protein 8.2 (6.3-8.2) g/dL Albumin 5.1 H (3.5-5.0) g/dL 02/19/21 Range/Units 16:04 WBC 7.6 (4.0-10.5) K/mm3 RBC 5.38 (4.1-5.6) M/mm3 Hgb 16.1 (12.5-18.0) gm/dl Hct 47.2 (42-50) % MCV 87.7 (78-100) fl MCH 29.9 (26-32) pg MCHC 34.1 (32-36) g/dl RDW 13.5 (11.5-14.0) % Plt Count 171 (150-450) K/mm3 MPV 12.6 H (7.5-11.0) fl Gran % 67.7 H (36.0-66.0) % Eos # (Auto) 0.32 (0-0.5) Absolute Lymphs (auto) 1.56 (1.0-4.6) Absolute Monos (auto) 0.55 (0.0-1.3) Lymphocytes % 20.7 L (24.0-44.0) % Monocytes % 7.3 (0.0-12.0) % Eosinophils % 4.2 (0.00-5.0) % Basophils % 0.1 (0.0-0.4) % Absolute Granulocytes 5.11 (1.4-6.9) Basophils # 0.01 (0-0.4) PT (9.4-12.5) SECONDS INR (0.8-3.0) D-Dimer (215-500) ng/mL Sodium (137-145) mmol/L Potassium (3.5-5.1) mmol/L Chloride (98-107) mmol/L Carbon Dioxide (22-30) mmol/L Anion Gap (5-15) MEQ/L BUN (9-20) mg/dL Creatinine (0.66-1.25) mg/dL Estimated GFR ML/MIN Glucose (74-106) mg/dL Calcium (8.4-10.2) mg/dL Total Bilirubin (0.2-1.3) mg/dL AST (17-59) U/L ALT (0-50) U/L Alkaline Phosphatase (38-126) U/L Troponin I (0.000-0.034) ng/mL NT-Pro-B Natriuret Pep (0-900) pg/mL Serum Total Protein (6.3-8.2) g/dL Albumin (3.5-5.0) g/dL - Progress Progress: improved, re-examined Air Movement: good Progress Note: 02/19/21 17:33 Chest x-ray shows no acute cardiopulmonary process. CAT scan of the head shows no acute intracranial abnormalities. There is atrophy and degenerative changes with microischemia within normal limits for age. 02/19/21 18:51 CTA of chest shows no pulmonary embolus or airspace infiltrate. Counseled pt/family regarding: lab results, diagnosis, need for follow-up, rad results - Departure Departure Disposition: Home Clinical Impression: Non-cardiac chest pain Condition: Stable Critical Care Time: No Referrals: MARTIN MORALES MD [Primary Care Provider] - Follow up/PCP as directed Additional Instructions: Take all your medication as prescribed. Follow-up with your primary care physician for further work-up including possible cardiac stress test.
--- NOTE | 2021-02-19 15:56 | XRAY ---
Indication: Chest pain. Comparison: None Portable chest clear. Heart not enlarged. Bony thorax intact with mild osteopenia and old left 4-8 rib fractures.
--- NOTE | 2021-02-19 16:04 | XRAY ---
Indication: Left side numbness. Multiple contiguous axial images obtained through the head without contrast. Comparison: October 04, 2017. Again age-appropriate global atrophy with now mild periventricular degenerative micro-ischemia bilaterally. No acute intracranial hemorrhage, abnormal extra-axial fluid collection, or mass effect. Fourth ventricle is midline without hydrocephalus. Bony calvarium intact. Visualized paranasal sinuses and mastoid air cells are clear. Impression: Atrophy and degenerative micro-ischemia within normal limits for patient's age. No acute intracranial abnormalities.
[2021-02-19 16:16] LABS: Absolute Neutrophil Ct (ANC) 5.11 (1.4-6.9); BASOPHIL % 0.1 % (0.0-0.4); Basophil (Absolute #) 0.01 (0-0.4); Eosinophil % 4.2 % (0.00-5.0); Eosinophil (Absolute #) 0.32 (0-0.5); Hematocrit 47.2 % (42-50); Hemoglobin 16.1 gm/dl (12.5-18.0); INR 1.02 (0.8-3.0); Lymphocyte (Absolute #) 1.56 (1.0-4.6); Lymphocytes % 20.7 % (24.0-44.0); Mean Cell Volume 87.7 fl (78-100); Mean Corpuscular Hemoglobin 29.9 pg (26-32); Mean Corpuscular Hgb Concent. 34.1 g/dl (32-36); Mean Platelet Volume 12.6 fl (7.5-11.0); Monocyte (Absolute #) 0.55 (0.0-1.3); Monocytes % 7.3 % (0.0-12.0); Neutrophil % 67.7 % (36.0-66.0); Platelet Count 171 K/mm3 (150-450); Red Blood Count 5.38 M/mm3 (4.1-5.6); Red Cell Distribution Width 13.5 % (11.5-14.0); White Blood Count 7.6 K/mm3 (4.0-10.5)
[2021-02-19 16:30] LABS: ALBUMIN 5.1 g/dL (3.5-5.0); ALKALINE PHOSPHATASE 115 U/L (38-126); ANION GAP 14.3 MEQ/L (5-15); BLOOD UREA NITROGEN 11 mg/dL (9-20); CHLORIDE 102 mmol/L (98-107); Calcium 9.8 mg/dL (8.4-10.2); Carbon Dioxide 30 mmol/L (22-30); Creatinine 1 0.96 mg/dL (0.66-1.25); EST GLOMERULAR FILTRATION RATE > 60.0 ML/MIN; Glucose 117 mg/dL (74-106); NT PRO BNP 424 pg/mL (0-900); Potassium 3.7 mmol/L (3.5-5.1); SGOT/AST 29 U/L (17-59); SGPT/ALT 28 U/L (0-50); SODIUM 142 mmol/L (137-145); Total Protein 8.2 g/dL (6.3-8.2)
[2021-02-19] MEDS ORDERED: Sodium Chloride 0.9% 500 ML 500 ML IV ONE ×2 (17:14→17:22)
--- NOTE | 2021-02-19 22:20 | XRAY ---
Indication: Chest pain 2 days. Elevated d-dimer. Multiple contiguous axial images obtained through the chest using 100 cc Isovue 370 contrast and PE protocol. Comparison: None There is adequate opacification of the pulmonary arteries to include the lobar and segmental branches. No pulmonary embolus. Heart not enlarged. Aorta is normal in course and caliber. No pathologic mediastinal/hilar lymphadenopathy. Lungs are inflated with minimal bibasilar fibrosis/scarring. No suspicious pulmonary mass, infiltrate, or effusion. Bony thorax intact with minimal degenerative changes throughout the spine and old left lateral 4-8 rib fractures. Limited upper abdomen unremarkable. Impression: Negative pulmonary embolus. Old left rib fractures. Remaining CT chest with contrast exam is negative. Comment: Preliminary interpretation made by C. No critical discrepancy.
[2021-02-22 17:03] VITALS: BP 144/82; PULSE 73; O2SAT 99
== END 2021-02-19 18:56 | disposition home or self-care (01) ==
LOC: ED 15:25
DX: R07.89 Other chest pain (principal); I10 Essential (primary) hypertension; E78.5 Hyperlipidemia, unspecified; G40.909 Epilepsy, unspecified, not intractable, without status epilepticus; Z79.899 Other long term (current) drug therapy; Z86.16 Personal history of COVID-19
CPT/HCPCS: 36000; 36415; 70450; 71045; 71260; 80053; 83880; 84484; 85025; 85379; 85610; 93005; 94760; 96360; 99284; A9270-GY

== ENCOUNTER 2021-06-20 16:44 | Emergency (ER) | payer MEDICARE ==
[2021-06-20 17:12] LABS: WBC 0-2 /HPF (0-5)
[2021-06-20 17:13] LABS: Appearance CLEAR (CLEAR)
[2021-06-20 17:14] LABS: Bacteria NONE SEEN /HPF (NEGATIVE); Bilirubin SMALL (NEGATIVE); Glucose NEGATIVE (NEGATIVE); Ketones NEGATIVE (NEGATIVE); Nitrite NEGATIVE (NEGATIVE); Ph 5.5 (5-6); Protein,Urine Dip NEGATIVE (Negative); RBC MODERATE Ery/ul (0-5); Specific Gravity <=1.005 (1.005-1.025); Urobilinogen 0.2 mg/dL (0-1)
[2021-06-20 18:00] LABS: Absolute Neutrophil Ct (ANC) 5.74 (1.4-6.9); Basophil (Absolute #) 0.02 (0-0.4); Eosinophil % 3.2 % (0.00-5.0); Eosinophil (Absolute #) 0.28 (0-0.5); Hematocrit 41.2 % (42-50); Hemoglobin 14.1 gm/dl (12.5-18.0); Lymphocyte (Absolute #) 2.09 (1.0-4.6); Lymphocytes % 23.8 % (24.0-44.0); Mean Cell Volume 87.8 fl (78-100); Mean Corpuscular Hemoglobin 30.1 pg (26-32); Mean Corpuscular Hgb Concent. 34.2 g/dl (32-36); Mean Platelet Volume 11.5 fl (7.5-11.0); Monocyte (Absolute #) 0.64 (0.0-1.3); Monocytes % 7.3 % (0.0-12.0); Neutrophil % 65.5 % (36.0-66.0); Platelet Count 142 K/mm3 (150-450); Red Blood Count 4.69 M/mm3 (4.1-5.6); Red Cell Distribution Width 13.4 % (11.5-14.0); White Blood Count 8.8 K/mm3 (4.0-10.5)
--- NOTE | 2021-06-20 18:06 | ERPHSYRPT ---
- History of Present Illness Source: patient Exam Limitations: no limitations Patient Subjective Stated Complaint: PT HERE FOR BLOOD IN URINE SINCE LAST NIGHT, NO FEVER OR PAIN Triage Nursing Assessment: PT ALERT, WALKED IN , FACE MASKS ASPPLIED, SKIN W/D/P. NO EDEMA NOTED, HAS BLOOD ON UNDERWEAR, URINE YELLOW, Timing/Duration: yesterday Activites at Onset: other (Urinating) Quality: other (No pain) Onset Location: unknown Pain Radiation: none Severity of Pain-Max: none Severity of Pain-Current: none Modifying Factors: Improves With: nothing, urinating Associated Symptoms: No abdominal pain, No fever, No chills, No diaphoresis, No nausea, No vomiting, No dysuria, No nocturia, No polyuria, No urinary frequency, No loss of bladder control, No lower back pain, No lumps, No mass, No swelling, No syncope Prior abdominal problems: none Sexual intercourse history: non-contributory Hx Tetanus, Diphtheria Vaccination/Date Given: Yes Hx Influenza Vaccination/Date Given: Yes Hx Pneumococcal Vaccination/Date Given: Yes Immunizations Up to Date: Yes <TONI BANKS - Last Filed: 06/20/21 19:02> <JUDY MARTINEZ - Last Filed: 06/20/21 20:10> - History of Present Illness Physician History: 65 yo wm w painless hematuria beginning last night. Pt denies any CVA/Flank pain/anticoagulant use/antiplatelet use/fever/frequency/urgency/stream problems. States that he has not had this problem before. (TONI BANKS) Allergies/Adverse Reactions: Penicillins Allergy (Verified 06/20/21 16:58) Home Medications: ALPRAZolam 0.5 MG [xanAX 0.5 MG] 0.5 mg PO DAILY 10/04/17 [History] Bisoprolol/Hydrochlorothiazide [Bisoprolol-Hctz 10-6.25 mg Tab] 1 tab PO DAILY 10/04/17 [History] Pravastatin Sodium 40 mg PO HS 10/04/17 [History] Sertraline HCl 100 mg PO DAILY 10/04/17 [History] lamoTRIgine [Lamotrigine] 25 mg PO BID 10/04/17 [History] levETIRAcetam [Levetiracetam] 2 tab PO BID 10/04/17 [History] Etodolac 400 mg [Lodine 400 mg] 400 mg PO BID 06/20/21 [History] Metformin HCl 500 mg [Glucophage 500 MG] 1 ea BID 06/20/21 [History] Travel Risk - International Travel Have you traveled outside of the country in past 3 weeks: No - Coronavirus Screening Are you exhibiting any of the following symptoms?: No - Vaccine Status Have you recieved a Covid-19 vaccination: Yes 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[employer] - Vaccination Dates Date of 2cond Vaccination (if applicable): unknown <TONI BANKS - Last Filed: 06/20/21 19:02> - Past Medical History Pertinent Past Medical History: Yes Neurological History: Epilepsy Cardiac History: High Cholesterol, Hypertension GI Medical History: GI Bleed, Other Other Medical History: perforated bowel, covid 19 - Past Surgical History Past Surgical History: No - Social History Smoking Status: Former smoker Exposure to second hand smoke: No Drug Use: none Patient Lives Alone: No Significant Family History: no pertinent family hx <TONI BANKS - Last Filed: 06/20/21 19:02> - Review of Systems Constitutional: No Symptoms Eyes: No Symptoms Ears, Nose, & Throat: No Symptoms Respiratory: No Symptoms Cardiac: No Symptoms Abdominal/Gastrointestinal: No Symptoms Genitourinary Symptoms: No Symptoms, Hematuria Musculoskeletal: No Symptoms Skin: No Symptoms Neurological: No Symptoms Psychological: No Symptoms Endocrine: No Symptoms Hematologic/Lymphatic: No Symptoms Immunological/Allergic: No Symptoms <TONI BANKS - Last Filed: 06/20/21 19:02> - Physical Exam General Appearance: no apparent distress Eye Exam: PERRL/EOMI, eyes nml inspection Ears, Nose, Throat Exam: normal ENT inspection, TMs normal, pharynx normal, moist mucous membranes Neck Exam: normal inspection, non-tender, supple, full range of motion, No meningismus, No mass, No Brudzinski, No Kernig's Respiratory Exam: normal breath sounds, lungs clear, airway intact, No respiratory distress Cardiovascular Exam: regular rate/rhythm, normal heart sounds, normal peripheral pulses, capillary refill <2 sec, No murmur Gastrointestinal/Abdomen Exam: soft, normal bowel sounds, No tenderness Back Exam: normal inspection, normal range of motion, No CVA tenderness, No vertebral tenderness Extremity Exam: normal inspection Neurologic Exam: alert, oriented x 3, cooperative, 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, normal mood/affect, nml station & gait, sensation nml Skin Exam: normal color, warm, dry Lymphatic Exam: No adenopathy SpO2 Interpretation: normal SpO2: 97 O2 Delivery: Room Air <TONI BANKS - Last Filed: 06/20/21 19:02> - Nursing Vital Signs Nursing Vital Signs: Initial Vital Signs Temperature 97.0 F 06/20/21 17:01 Pulse Rate 79 06/20/21 17:01 Respiratory Rate 18 06/20/21 17:01 Blood Pressure 141/86 06/20/21 17:01 O2 Sat by Pulse Oximetry 97 06/20/21 17:01 Pain Scale Pain Intensity 0 Hypertensive (TONI BANKS) - Course Nursing assessment & vital signs reviewed: Yes <JUDY MARTINEZ - Last Filed: 06/20/21 20:10> Ordered Tests: Active Orders 24 hr Category Date Time Status ABDOMEN AND PELVIS W/0 CONTRAS [CT] Stat Exams 06/20/21 18:09 Taken CBC W DIFF Stat Lab 06/20/21 17:57 Completed CMP Stat Lab 06/20/21 17:57 Completed PROTIME WITH INR Stat Lab 06/20/21 17:57 Completed PTT Stat Lab 06/20/21 17:57 Completed Lab/Rad Data: Laboratory Result Diagrams 06/20/21 17:57 06/20/21 17:57 Laboratory Results 06/20/21 06/20/21 06/20/21 Range/Units 17:57 17:57 17:57 WBC 8.8 (4.0-10.5) K/mm3 RBC 4.69 (4.1-5.6) M/mm3 Hgb 14.1 (12.5-18.0) gm/dl Hct 41.2 L (42-50) % MCV 87.8 (78-100) fl MCH 30.1 (26-32) pg MCHC 34.2 (32-36) g/dl RDW 13.4 (11.5-14.0) % Plt Count 142 L (150-450) K/mm3 MPV 11.5 H (7.5-11.0) fl Gran % 65.5 (36.0-66.0) % Eos # (Auto) 0.28 (0-0.5) Absolute Lymphs (auto) 2.09 (1.0-4.6) Absolute Monos (auto) 0.64 (0.0-1.3) Lymphocytes % 23.8 L (24.0-44.0) % Monocytes % 7.3 (0.0-12.0) % Eosinophils % 3.2 (0.00-5.0) % Basophils % 0.2 (0.0-0.4) % Absolute Granulocytes 5.74 (1.4-6.9) Basophils # 0.02 (0-0.4) PT 12.2 (9.4-12.5) SECONDS INR 1.03 (0.8-3.0) APTT 30.0 (25.1-36.5) SECONDS Sodium 139 (137-145) mmol/L Potassium 3.5 (3.5-5.1) mmol/L Chloride 105 (98-107) mmol/L Carbon Dioxide 23 (22-30) mmol/L Anion Gap 14.4 (5-15) MEQ/L BUN 14 (9-20) mg/dL Creatinine 0.76 (0.66-1.25) mg/dL Estimated GFR > 60.0 ML/MIN Glucose 155 H (74-106) mg/dL Calcium 9.5 (8.4-10.2) mg/dL Total Bilirubin 0.60 (0.2-1.3) mg/dL AST 19 (17-59) U/L ALT 16 (0-50) U/L Alkaline Phosphatase 85 (38-126) U/L Serum Total Protein 6.9 (6.3-8.2) g/dL Albumin 4.4 (3.5-5.0) g/dL Urinalys Dipstick Clnc Urine Color (YELLOW) Urine Appearance (CLEAR) Urine pH (5-6) Ur Specific [place] (1.005-1.025) POC Urine Protein Conf (Negative) Urine Ketones (NEGATIVE) Urine Nitrite (NEGATIVE) Urine Bilirubin (NEGATIVE) Urine Urobilinogen (0-1) mg/dL Urine Leukocytes (NEGATIVE) Urine WBC (Auto) (0-5) /HPF Urine RBC (Auto) (0-2) /HPF U Epithel Cells (Auto) (FEW) /HPF Urine Bacteria (Auto) (NEGATIVE) /HPF Urine RBC (0-5) Patrice/ul Ur Culture Indicated? Urine Glucose (NEGATIVE) mg/dL 06/20/21 Range/Units 17:00 WBC (4.0-10.5) K/mm3 RBC (4.1-5.6) M/mm3 Hgb (12.5-18.0) gm/dl Hct (42-50) % MCV (78-100) fl MCH (26-32) pg MCHC (32-36) g/dl RDW (11.5-14.0) % Plt Count (150-450) K/mm3 MPV (7.5-11.0) fl Gran % (36.0-66.0) % Eos # (Auto) (0-0.5) Absolute Lymphs (auto) (1.0-4.6) Absolute Monos (auto) (0.0-1.3) Lymphocytes % (24.0-44.0) % Monocytes % (0.0-12.0) % Eosinophils % (0.00-5.0) % Basophils % (0.0-0.4) % Absolute Granulocytes (1.4-6.9) Basophils # (0-0.4) PT (9.4-12.5) SECONDS INR (0.8-3.0) APTT (25.1-36.5) SECONDS Sodium (137-145) mmol/L Potassium (3.5-5.1) mmol/L Chloride (98-107) mmol/L Carbon Dioxide (22-30) mmol/L Anion Gap (5-15) MEQ/L BUN (9-20) mg/dL Creatinine (0.66-1.25) mg/dL Estimated GFR ML/MIN Glucose (74-106) mg/dL Calcium (8.4-10.2) mg/dL Total Bilirubin (0.2-1.3) mg/dL AST (17-59) U/L ALT (0-50) U/L Alkaline Phosphatase (38-126) U/L Serum Total Protein (6.3-8.2) g/dL Albumin (3.5-5.0) g/dL Urinalys Dipstick Clnc MAIN LAB Urine Color YELLOW (YELLOW) Urine Appearance CLEAR (CLEAR) Urine pH 5.5 (5-6) Ur Specific [place] <=1.005 (1.005-1.025) POC Urine Protein Conf NEGATIVE (Negative) Urine Ketones NEGATIVE (NEGATIVE) Urine Nitrite NEGATIVE (NEGATIVE) Urine Bilirubin SMALL (NEGATIVE) Urine Urobilinogen 0.2 (0-1) mg/dL Urine Leukocytes NEGATIVE (NEGATIVE) Urine WBC (Auto) 0-2 (0-5) /HPF Urine RBC (Auto) NONE (0-2) /HPF U Epithel Cells (Auto) NONE (FEW) /HPF Urine Bacteria (Auto) NONE SEEN (NEGATIVE) /HPF Urine RBC MODERATE (0-5) Patrice/ul Ur Culture Indicated? NO Urine Glucose NEGATIVE (NEGATIVE) mg/dL <TONI BANKS - Last Filed: 06/20/21 19:02> - Progress Progress: unchanged Counseled pt/family regarding: lab results, diagnosis, need for follow-up, rad results <JUDY MARTINEZ - Last Filed: 06/20/21 20:10> - Progress Progress Note: 06/20/21 19:02 Care tuned over to Dr. Martinez at 19:[address] ab-pelvis pending (TONI BANKS) 06/20/21 20:06 CAT scan of the abdomen pelvis shows enlarged prostate without evidence of renal or ureteral stones. The urinary bladder is unremarkable as visualized. Medical decision making: This patient has microscopic hematuria. Although the patient did have some visualized, gross hematuria at home prompting him to come to the emergency department. We will place him on Cipro to treat hemorrhagic cystitis and have him follow-up with urology as an outpatient. (JUDY MARTINEZ) <TONI BANKS - Last Filed: 06/20/21 19:02> - Departure Departure Disposition: Home Critical Care Time: No <JUDY MARTINEZ - Last Filed: 06/20/21 20:10> - Departure Clinical Impression: Hematuria, Hemorrhagic cystitis, Enlarged prostate Condition: Stable Referrals: MARTIN MORALES MD [Primary Care Provider] - Follow up/PCP as directed Additional Instructions: Drink plenty fluids. Take your medication as prescribed. Follow-up with a urologist as an outpatient for further evaluation of your enlarged prostate and for the hematuria that is present. Prescriptions: Ciprofloxacin [Cipro 500 MG] 500 mg PO BID #14 tablet
[2021-06-20 18:07] LABS: INR 1.03 (0.8-3.0); PROTIME 12.2 SECONDS (9.4-12.5)
[2021-06-20 18:11] LABS: ALBUMIN 4.4 g/dL (3.5-5.0); ALKALINE PHOSPHATASE 85 U/L (38-126); ANION GAP 14.4 MEQ/L (5-15); BLOOD UREA NITROGEN 14 mg/dL (9-20); CHLORIDE 105 mmol/L (98-107); Calcium 9.5 mg/dL (8.4-10.2); Carbon Dioxide 23 mmol/L (22-30); Creatinine 1 0.76 mg/dL (0.66-1.25); EST GLOMERULAR FILTRATION RATE > 60.0 ML/MIN; Glucose 155 mg/dL (74-106); Potassium 3.5 mmol/L (3.5-5.1); SGOT/AST 19 U/L (17-59); SGPT/ALT 16 U/L (0-50); SODIUM 139 mmol/L (137-145); Total Protein 6.9 g/dL (6.3-8.2)
[2021-06-20 18:12] LABS: Dipstick done @ ? MAIN LAB
[2021-06-20 19:42] VITALS: BP 123/73; PULSE 62; O2SAT 98
[2021-06-20] MEDS ORDERED: Cipro 500 MG PO ONE (20:05)
[2021-06-20] MEDS ORDERED: Cipro 500 MG ONE (20:12)
--- NOTE | 2021-06-21 08:52 | XRAY ---
Indication: Hematuria. Multiple contiguous axial images obtained through the abdomen and pelvis without contrast using renal stone protocol. Comparison: None. Study slightly degraded by respiration artifact. Lung bases demonstrates mild bibasilar fibrosis/scarring. Heart not enlarged. Small hiatal hernia. No renal calculus or evidence for obstructive uropathy in either system. 1 cm left upper renal cortical cyst. Noncontrasted stomach and bowel loops appear nonobstructed with normal appendix. Minimal descending and sigmoid diverticulosis. No free fluid/air. Enlarged prostate gland impresses on the base of the bladder. Remaining liver, gallbladder, pancreas, spleen, adrenal glands, kidneys, ureters, and bladder are unremarkable for noncontrast exam. Mild scattered aortoiliac calcifications without AAA. Osseous structures intact with mild/moderate degenerative changes throughout the thoracolumbar spine. 2 cm L5 vertebral hemangioma. Impression: 1. Respiration artifact. 2. Negative renal calculus or evidence for obstructive uropathy. 3. Incidental small hiatal hernia, minimal colonic diverticulosis, left renal cyst, enlarged prostate gland, and chronic bony findings. Comment: Preliminary interpretation made by C. No critical discrepancy.
== END 2021-06-20 20:40 | disposition home or self-care (01) ==
LOC: ED 16:44
DX: N30.01 Acute cystitis with hematuria (principal); N40.0 Benign prostatic hyperplasia without lower urinary tract symptoms; E78.5 Hyperlipidemia, unspecified; I10 Essential (primary) hypertension; Z86.16 Personal history of COVID-19; Z79.899 Other long term (current) drug therapy
CPT/HCPCS: 36415; 74176; 80053; 81015; 85025; 85610; 85730; 99284; A9270-GY

== ENCOUNTER 2021-11-21 12:52 | Emergency (ER) | payer MEDICARE ==
--- NOTE | 2021-11-21 14:06 | ERPHSYRPT ---
- History of Present Illness Source: patient Exam Limitations: no limitations Patient Subjective Stated Complaint: C/O cough, fatigue, body aches that started a few days ago. Triage Nursing Assessment: Patient ambulated back to ED. He is alert and oriented and answering questions appropriately. No SOB noted at this time. Patient noted to be hoarse with a forceful, dry, non-productive cough. Cough increases when patient takes a deep breath. Physician History: 66 yo wm w cough/coryza/HAMILTON/myalgias x 3 days. He denies fever/N/V/D/melena/hematochezia. Chest pain is denied, and he has mild DUE. He smokes a pipe. Timing/Duration: gradual onset Severity: mild Prearrival Treatment: no prearrival treatment Modifying Factors: Improves With: coughing Associated Symptoms: cough, headache, No fever, No chills, No change in hearing, No dizziness, No drooling, No ear drainage, No facial pain/swelling, No hearing loss, No jaw pain, No malaise, No motion sickness, No nasal congestion/drainage, No epistaxis, No nasal foreign body, No neck pain, No poor fluid intake, No poor solids intake, No ringing of ears, No swollen glands, No sinus infection, No sore throat, No tooth pain, No difficulty swallowing, No voice change Allergies/Adverse Reactions: Penicillins Allergy (Verified 11/21/21 13:15) Home Medications: ALPRAZolam 0.5 MG [xanAX 0.5 MG] 0.5 mg PO DAILY 10/04/17 [History] Bisoprolol/Hydrochlorothiazide [Bisoprolol-Hctz 10-6.25 mg Tab] 1 tab PO DAILY 10/04/17 [History] Pravastatin Sodium 40 mg PO HS 10/04/17 [History] Sertraline HCl 100 mg PO DAILY 10/04/17 [History] lamoTRIgine [Lamotrigine] 25 mg PO BID 10/04/17 [History] levETIRAcetam [Levetiracetam] 2 tab PO BID 10/04/17 [History] Etodolac 400 mg [Lodine 400 mg] 400 mg PO BID 06/20/21 [History] Metformin HCl 500 mg [Glucophage 500 MG] 1 ea BID 06/20/21 [History] Hx Tetanus, Diphtheria Vaccination/Date Given: Yes Hx Influenza Vaccination/Date Given: No Hx Pneumococcal Vaccination/Date Given: No Immunizations Up to Date: Yes Travel Risk - International Travel Have you traveled outside of the country in past 3 weeks: No - Coronavirus Screening Are you exhibiting any of the following symptoms?: Yes Symptoms: Cough: New Onset, Headaches/Body Aches/Fatigue Close contact with a COVID-19 positive Pt in past 14-21 Days: Yes - Vaccine Status Have you recieved a Covid-19 vaccination: Yes 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[employer] - Vaccination Dates Date of 2cond Vaccination (if applicable): 2020 - Review of Systems Constitutional: No Symptoms, Malaise Eyes: No Symptoms Ears, Nose, & Throat: No Symptoms, Nose Pain, Nose Congestion Respiratory: No Symptoms, Cough, Dyspnea on Exertion (MARKHAM) Cardiac: No Symptoms Abdominal/Gastrointestinal: No Symptoms Genitourinary Symptoms: No Symptoms Musculoskeletal: No Symptoms Skin: No Symptoms Neurological: No Symptoms Psychological: No Symptoms Endocrine: No Symptoms Hematologic/Lymphatic: No Symptoms Immunological/Allergic: No Symptoms - Past Medical History Pertinent Past Medical History: Yes Neurological History: Epilepsy Cardiac History: High Cholesterol, Hypertension GI Medical History: GI Bleed, Other Psycho-Social History: Depression Other Medical History: perforated bowel, covid 19 - Past Surgical History Past Surgical History: No - Social History Smoking Status: Current every day smoker Exposure to second hand smoke: No Drug Use: none Patient Lives Alone: No Significant Family History: no pertinent family hx - Nursing Vital Signs Nursing Vital Signs: Initial Vital Signs Temperature 97.6 F 11/21/21 13:15 Pulse Rate 87 11/21/21 13:15 Respiratory Rate 24 11/21/21 13:15 Blood Pressure 141/79 11/21/21 13:15 O2 Sat by Pulse Oximetry 95 11/21/21 13:15 Pain Scale Pain Intensity 0 Hypertensive - Physical Exam General Appearance: no apparent distress Eye Exam: bilateral eye: normal inspection, PERRL, EOMI Ear Exam: bilateral ear: auricle normal, canal normal, TM normal Nasal Exam: normal inspection Throat Exam: normal, pharynx normal Neck Exam: normal inspection, non-tender, supple, full range of motion, trachea midline, No Brudzinski's sign Cardiovascular/Respiratory Exam: regular rate/rhythm, heart sounds normal, no JVD, rales (Rales L base) Abdominal Exam: non-tender, soft Neurologic Exam: alert, oriented x 3, cooperative, 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, normal mood/affect Skin Exam: normal color, warm, dry SpO2 Interpretation: normal SpO2: 95 O2 Delivery: Room Air - Course Nursing assessment & vital signs reviewed: Yes Lab/Rad Data: Laboratory Results 11/21/21 Range/Units 14:21 Influenza Type A Ag NEGATIVE (NEGATIVE) Influenza Type B Ag NEGATIVE (NEGATIVE) RSV (PCR) NEGATIVE (Negative) SARS-CoV-2 (PCR) POSITIVE A (NEGATIVE) - Progress Progress Note: 11/21/21 15:03 Pt w room air sats in mid 90's w non-labored respirations Counseled pt/family regarding: diagnosis, need for follow-up, smoking cessation - Departure Departure Disposition: Home Clinical Impression: COVID-19 Condition: Stable Critical Care Time: No Referrals: MARTIN MORALES MD [Primary Care Provider] - Follow up/PCP as directed Instructions: Cough, Adult (DC), COVID-19 (DC) Additional Instructions: Start Paxlovid 3 tabs twice a day for 5 days Decadron once a day for 5 days Get a pulse oximeter and monitor oxygen saturation 2-3 times a day Return to ER for persistent oxygen saturation less than 90% Prescriptions: Dexamethasone 4 mg [Decadron 4 MG] 4 mg PO DAILY 5 Days #5 tablet Nirmatrelvir/Ritonavir [Paxlovid 2X150 mg-100 mg (Eua)] 1 each PO BID 5 Days #30 tablet
[2021-11-21 14:16] LABS: INFLUENZA A NEGATIVE (NEGATIVE); INFLUENZA B NEGATIVE (NEGATIVE); RESPIRATORY SYNCTIAL VIRUS NEGATIVE (Negative)
[2021-11-21 14:22] LABS: SARS-CoV-2 Xpert Express POSITIVE (NEGATIVE)
[2021-11-21 14:26] VITALS: BP 123/71
[2021-11-21 14:56] VITALS: PULSE 84
[2021-11-21 15:04] VITALS: O2SAT 95
== END 2021-11-21 14:57 | disposition home or self-care (01) ==
LOC: ED 12:52
DX: U07.1 COVID-19 (principal); R05.1 Acute cough; R09.81 Nasal congestion; R51.9 Headache, unspecified; M79.10 Myalgia, unspecified site; E78.5 Hyperlipidemia, unspecified; I10 Essential (primary) hypertension; Z72.0 Tobacco use; Z79.899 Other long term (current) drug therapy; Z79.52 Long term (current) use of systemic steroids
CPT/HCPCS: 0241U; 99282

== ENCOUNTER 2022-04-07 12:52 | Observation (INO) | payer MEDICARE ==
[2022-04-07] MEDS ORDERED: MORPHINE SULFATE 4 MG INJ IV ONE (13:24)
[2022-04-07] MEDS ORDERED: Zofran 4 MG/2 ML VIAL IV ONE (13:24)
[2022-04-07] MEDS ORDERED: BABY ASPIRIN 81 MG CHEW PO ONE (13:24)
[2022-04-07] MEDS ORDERED: MORPHINE SULFATE 4 MG INJ ONE (13:29)
[2022-04-07] MEDS ORDERED: Zofran 4 MG/2 ML VIAL ONE (13:29)
[2022-04-07] MEDS ORDERED: BABY ASPIRIN 81 MG CHEW ONE (13:29)
[2022-04-07 13:42] LABS: Absolute Neutrophil Ct (ANC) 4.91 x10^3/uL (1.4-6.9); Basophil (Absolute #) 0.02 x10^3/uL (0-0.4); Eosinophil % 2.9 % (0.00-5.0); Hematocrit 41.1 % (42-50); Hemoglobin 13.7 g/dL (12.5-18.0); Lymphocyte (Absolute #) 1.46 x10^3/uL (1.0-4.6); Lymphocytes % 20.9 % (24.0-44.0); Mean Cell Volume 86.3 fL (78-100); Mean Corpuscular Hemoglobin 28.8 pg (26-32); Mean Corpuscular Hgb Concent. 33.3 g/dL (32-36); Mean Platelet Volume 11.9 fL (7.5-11.0); Monocyte (Absolute #) 0.38 x10^3/uL (0.0-1.3); Monocytes % 5.4 % (0.0-12.0); Neutrophil % 70.1 % (36.0-66.0); Platelet Count 174 x10^3/uL (150-450); Red Blood Count 4.76 x10^6/uL (4.1-5.6); Red Cell Distribution Width 13.2 % (11.5-14.0)
--- NOTE | 2022-04-07 13:50 | ERPHSYRPT ---
- History of Present Illness Time Seen by Provider: 04/07/22 13:07 Patient Subjective Stated Complaint: Pt c/o of pain in lateral left chest beginning today at approx 0530 today, the pain comes in as a fast sharp pain Triage Nursing Assessment: Pt brought to the ER by his , hypertensive, rates pain as 10/10, pt has had a cough and has a pain that comes and goes real fast, pulses normal, skin n/w,d, doesn't appear to be in any distress Physician History: 66 years old male with history of hypertension, diabetes mellitus presented in the ER with chief complaint of left-sided chest pain sudden onset this morning around 5:30 AM, lasting for few seconds and improves on its own. Since then he is having multiple episodes of off-and-on left-sided chest pain, nonradiating, moderate to severe sharp whenever it comes on without associated palpitations or shortness of breath. Denies any history of CAD or recent cardiac work-up. Timing/Duration: today, intermittent, worse Activities at Onset: rest Quality: sharpness Location: substernal Chest Pain Radiation: no radiation Severity of Pain-Max: severe Severity of Pain-Current: mild Modifying Factors: Improves With: nothing Associated Symptoms: denies symptoms Prior Chest Pain/Cardiac Workup: no prior chest pain Nitro Today/Relief: no nitro taken today Aspirin Treatment Today: no aspirin today Allergies/Adverse Reactions: Penicillins Allergy (Verified 04/07/22 13:11) Home Medications: ALPRAZolam 0.5 MG [xanAX 0.5 MG] 0.5 mg PO DAILY 10/04/17 [History] Bisoprolol/Hydrochlorothiazide [Bisoprolol-Hctz 10-6.25 mg Tab] 1 tab PO DAILY 10/04/17 [History] Pravastatin Sodium 40 mg PO HS 10/04/17 [History] Sertraline HCl 100 mg PO DAILY 10/04/17 [History] lamoTRIgine [Lamotrigine] 50 mg PO BID 10/04/17 [History] levETIRAcetam [Levetiracetam] 1,000 mg PO QID 10/04/17 [History] Etodolac 400 mg [Lodine 400 mg] 400 mg PO BID 06/20/21 [History] Metformin HCl 500 mg [Glucophage 500 MG] 1 ea BID 06/20/21 [History] ARIPiprazole [Aripiprazole] 5 mg PO DAILY 04/07/22 [History] Montelukast Sodium 10 mg [Singulair 10 MG] 10 mg PO DAILY 04/07/22 [History] Hx Tetanus, Diphtheria Vaccination/Date Given: Yes Hx Influenza Vaccination/Date Given: No Hx Pneumococcal Vaccination/Date Given: No Travel Risk - International Travel Have you traveled outside of the country in past 3 weeks: No - Coronavirus Screening Are you exhibiting any of the following symptoms?: Yes Symptoms: Cough: New Onset Close contact with a COVID-19 positive Pt in past 14-21 Days: No - Vaccine Status Have you recieved a Covid-19 vaccination: Yes 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: [employer] - Vaccination Dates Date of 2cond Vaccination (if applicable): 2020 - Review of Systems Constitutional: No Symptoms Eyes: No Symptoms Ears, Nose, & Throat: No Symptoms Respiratory: No Symptoms Cardiac: Chest Pain Abdominal/Gastrointestinal: No Symptoms Genitourinary Symptoms: No Symptoms Musculoskeletal: No Symptoms Skin: No Symptoms Neurological: No Symptoms Psychological: No Symptoms Endocrine: No Symptoms Hematologic/Lymphatic: No Symptoms Immunological/Allergic: No Symptoms - Past Medical History Pertinent Past Medical History: Yes Neurological History: Epilepsy Cardiac History: High Cholesterol, Hypertension GI Medical History: GI Bleed, Other Psycho-Social History: Depression Other Medical History: perforated bowel, covid 19 - Past Surgical History Past Surgical History: No - Social History Smoking Status: Former smoker Exposure to second hand smoke: Yes Drug Use: none Patient Lives Alone: No Significant Family History: no pertinent family hx - Nursing Vital Signs Nursing Vital Signs: Initial Vital Signs Temperature 97.2 F 04/07/22 12:53 Pulse Rate 60 04/07/22 12:53 Respiratory Rate 22 04/07/22 12:53 Blood Pressure 149/85 04/07/22 12:53 O2 Sat by Pulse Oximetry 99 04/07/22 12:53 Pain Scale Pain Intensity 7 - Physical Exam General Appearance: no apparent distress, alert Eye Exam: PERRL/EOMI Ears, Nose, Throat Exam: normal ENT inspection Neck Exam: normal inspection, supple, full range of motion Respiratory Exam: normal breath sounds, chest tenderness (Left anterior chest wall with no crepitus. No rash.), lungs clear Cardiovascular Exam: regular rate/rhythm, normal heart sounds Gastrointestinal/Abdomen Exam: soft, normal bowel sounds Back Exam: normal inspection, normal range of motion Extremity Exam: normal inspection, normal range of motion Neurologic Exam: alert, oriented x 3, cooperative Skin Exam: normal color SpO2 Interpretation: normal SpO2: 99 O2 Delivery: Room Air - Course EKG Interpreted by Me: RATE, Sinus Rhythm, NORMAL AXIS, NORMAL INTERVALS, NORMAL QRS Ordered Tests: Active Orders 24 hr Category Date Time Status Direct Sales Professional STAT Care 04/07/22 13:27 Active EKG-ER Only STAT Care 04/07/22 13:24 Active IV Insertion STAT Care 04/07/22 13:24 Active CHEST 1 VIEW (PORTABLE) Stat Exams 04/07/22 13:27 Completed CBC W DIFF Stat Lab 04/07/22 13:15 Completed CK-Creatinine Phosphokinase Stat Lab 04/07/22 13:15 Completed CMP Stat Lab 04/07/22 13:15 Completed NT PRO BNP Stat Lab 04/07/22 13:15 Completed TROPONIN Q4H Lab 04/07/22 13:15 Completed TROPONIN Q4H Lab 04/07/22 17:30 Ordered TROPONIN Q4H Lab 04/07/22 21:30 Ordered Medication Summary Discontinued Medications Generic Name Dose Route Start Last Admin Trade Name Freq PRN Reason Stop Dose Admin Aspirin 324 mg 04/07/22 13:24 04/07/22 13:35 Aspirin 81 Mg Tab.Chew PO 04/07/22 13:25 324 mg STAT ONE Administration Aspirin Confirm 04/07/22 13:29 Aspirin 81 Mg Tab.Chew Administered 04/07/22 13:30 Dose 324 mg .ROUTE .STK-MED ONE Morphine Sulfate 4 mg 04/07/22 13:24 04/07/22 13:37 Morphine Sulfate 4 Mg/Ml Injection IV 04/07/22 13:25 4 mg STAT ONE Administration Morphine Sulfate Confirm 04/07/22 13:29 Morphine Sulfate 4 Mg/Ml Injection Administered 04/07/22 13:30 Dose 4 mg .ROUTE .STK-MED ONE Ondansetron HCl 4 mg 04/07/22 13:24 04/07/22 13:35 Ondansetron Hcl 4 Mg/2 Ml Vial IV 04/07/22 13:25 4 mg STAT ONE Administration Ondansetron HCl Confirm 04/07/22 13:29 Ondansetron Hcl 4 Mg/2 Ml Vial Administered 04/07/22 13:30 Dose 4 mg .ROUTE .STK-MED ONE Lab/Rad Data: Laboratory Result Diagrams 04/07/22 13:15 04/07/22 13:15 Laboratory Results 04/07/22 04/07/22 04/07/22 Range/Units 13:15 13:15 13:15 WBC 7.0 (4.0-10.5) x10^3/uL RBC 4.76 (4.1-5.6) x10^6/uL Hgb 13.7 (12.5-18.0) g/dL Hct 41.1 L (42-50) % MCV 86.3 (78-100) fL MCH 28.8 (26-32) pg MCHC 33.3 (32-36) g/dL RDW 13.2 (11.5-14.0) % Plt Count 174 (150-450) x10^3/uL MPV 11.9 H (7.5-11.0) fL Gran % 70.1 H (36.0-66.0) % Immature Gran % (Auto) 0.4 (0.00-0.4) % Nucleat RBC Rel Count 0.0 (0.00-0.1) % Eos # (Auto) 0.20 (0-0.5) x10^3/uL Immature Gran # (Auto) 0.03 (0.00-0.03) x10^3u/L Absolute Lymphs (auto) 1.46 (1.0-4.6) x10^3/uL Absolute Monos (auto) 0.38 (0.0-1.3) x10^3/uL Absolute Nucleated RBC 0.00 (0.00-0.01) x10^3u/L Lymphocytes % 20.9 L (24.0-44.0) % Monocytes % 5.4 (0.0-12.0) % Eosinophils % 2.9 (0.00-5.0) % Basophils % 0.3 (0.0-0.4) % Absolute Granulocytes 4.91 (1.4-6.9) x10^3/uL Basophils # 0.02 (0-0.4) x10^3/uL Sodium 140 (137-145) mmol/L Potassium 4.3 (3.5-5.1) mmol/L Chloride 105 (98-107) mmol/L Carbon Dioxide 26 (22-30) mmol/L Anion Gap 13.3 (5-15) MEQ/L BUN 9 (9-20) mg/dL Creatinine 0.67 (0.66-1.25) mg/dL Estimated GFR > 60.0 ML/MIN Glucose 125 H (74-106) mg/dL Calcium 10.0 (8.4-10.2) mg/dL Total Bilirubin 0.50 (0.2-1.3) mg/dL AST 22 (17-59) U/L ALT 16 (0-50) U/L Alkaline Phosphatase 110 (38-126) U/L Creatine Kinase 55 (55-170) U/L Troponin I < 0.012 (0.000-0.034) ng/mL NT-Pro-B Natriuret Pep 980 H (0-900) pg/mL Serum Total Protein 7.0 (6.3-8.2) g/dL Albumin 4.5 (3.5-5.0) g/dL - Progress Progress: improved Air Movement: good Progress Note: 04/07/22 14:31 66 years old is evaluated for left-sided chest pain. Patient has a history of hypertension, diabetes mellitus, seizure and bipolar disorder. 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 Patient presented with off-and-on left-sided chest pain without any significant aggravating or relieving factors, moderate to severe sharp and had couple of times while in the ER. He is given morphine and aspirin, on reevaluation feeling better. EKG showed sinus rhythm with no acute ST elevation and negative initial troponins. Chest x-ray negative for any acute cardiopulmonary findings. Unremarkable chemistries. Patient has a heart score of 4, discussed with Dr. Wolfe and patient is being admitted for observation to rule out ACS. Blood Culture(s) Obtained: No Antibiotics given: No Discussed with : Claudia Will see patient in: hospital (observation) Counseled pt/family regarding: lab results, diagnosis, rad results - Departure Departure Disposition: Observation Clinical Impression: Chest pain, rule out acute myocardial infarction Condition: Stable Critical Care Time: No Referrals: MARTIN MORALES MD [Primary Care Provider] - Follow up/PCP as directed
--- NOTE | 2022-04-07 13:53 | XRAY ---
Indication: Chest pain. Comparison: February 19, 2021 Portable chest again demonstrates normal heart and lungs. Bony thorax intact again with mild osteopenia and old left rib fractures. No new/acute findings.
[2022-04-07 14:00] LABS: ALBUMIN 4.5 g/dL (3.5-5.0); ALKALINE PHOSPHATASE 110 U/L (38-126); ANION GAP 13.3 MEQ/L (5-15); BLOOD UREA NITROGEN 9 mg/dL (9-20); CHLORIDE 105 mmol/L (98-107); CK-Creatinine Phosphokinase 55 U/L (55-170); Carbon Dioxide 26 mmol/L (22-30); Creatinine 1 0.67 mg/dL (0.66-1.25); EST GLOMERULAR FILTRATION RATE > 60.0 ML/MIN; Glucose 125 mg/dL (74-106); NT PRO BNP 980 pg/mL (0-900); Potassium 4.3 mmol/L (3.5-5.1); SGOT/AST 22 U/L (17-59); SGPT/ALT 16 U/L (0-50); SODIUM 140 mmol/L (137-145)
[2022-04-07 15:03] LABS: INFLUENZA A NEGATIVE (NEGATIVE); INFLUENZA B NEGATIVE (NEGATIVE); RESPIRATORY SYNCTIAL VIRUS NEGATIVE (Negative); SARS-CoV-2 Xpert Express NEGATIVE (NEGATIVE)
[2022-04-07] MEDS ORDERED: DUONEB 0.5-3 MG/3 ml Neb IH PRN (17:04)
[2022-04-07] MEDS ORDERED: HUMALOG SQ PRN (17:04)
[2022-04-07] MEDS ORDERED: MORPHINE SULFATE 4 MG INJ IV PRN (17:04)
[2022-04-07] MEDS ORDERED: TYLENOL 325 MG PO PRN (17:04)
[2022-04-07] MEDS ORDERED: Zofran 4 MG/2 ML VIAL IV PRN (17:04)
[2022-04-07] MEDS ORDERED: PROVENTIL 2.5 MG/3 ML NEB IH PRN (17:40)
[2022-04-07] MEDS ORDERED: Keppra 250 MG PO ONE (22:00)
[2022-04-07] MEDS ORDERED: xanAX 0.5 MG PO ONE (22:00)
[2022-04-07] MEDS ORDERED: lamICTAL 100MG TABLET PO ONE (22:00)
[2022-04-07] MEDS ORDERED: ZOCOR 20MG PO ONE (22:00)
[2022-04-08 06:13] LABS: Absolute Neutrophil Ct (ANC) 4.09 x10^3/uL (1.4-6.9); Basophil (Absolute #) 0.02 x10^3/uL (0-0.4); Eosinophil % 3.8 % (0.00-5.0); Eosinophil (Absolute #) 0.26 x10^3/uL (0-0.5); Hematocrit 38.8 % (42-50); Hemoglobin 12.3 g/dL (12.5-18.0); Lymphocyte (Absolute #) 1.94 x10^3/uL (1.0-4.6); Lymphocytes % 28.4 % (24.0-44.0); Mean Cell Volume 88.6 fL (78-100); Mean Corpuscular Hemoglobin 28.1 pg (26-32); Mean Corpuscular Hgb Concent. 31.7 g/dL (32-36); Mean Platelet Volume 11.4 fL (7.5-11.0); Monocyte (Absolute #) 0.49 x10^3/uL (0.0-1.3); Monocytes % 7.2 % (0.0-12.0); Platelet Count 147 x10^3/uL (150-450); Red Blood Count 4.38 x10^6/uL (4.1-5.6); Red Cell Distribution Width 13.2 % (11.5-14.0); White Blood Count 6.8 x10^3/uL (4.0-10.5)
[2022-04-08 06:43] LABS: ALBUMIN 3.7 g/dL (3.5-5.0); ALKALINE PHOSPHATASE 76 U/L (38-126); ANION GAP 9.4 MEQ/L (5-15); BLOOD UREA NITROGEN 13 mg/dL (9-20); CHLORIDE 103 mmol/L (98-107); Calcium 9.1 mg/dL (8.4-10.2); Carbon Dioxide 31 mmol/L (22-30); Creatinine 1 0.81 mg/dL (0.66-1.25); EST GLOMERULAR FILTRATION RATE > 60.0 ML/MIN; Glucose 125 mg/dL (74-106); Potassium 3.9 mmol/L (3.5-5.1); SGOT/AST 20 U/L (17-59); SGPT/ALT 16 U/L (0-50); SODIUM 139 mmol/L (137-145); Total Protein 6.2 g/dL (6.3-8.2)
[2022-04-08] MEDS ORDERED: MEDICATION INTERVENTION MC SCH ×2 (07:45)
[2022-04-08] MEDS ORDERED: Glucophage 500 MG PO SCH (08:00)
[2022-04-08] MEDS: KEPPRA PO SCH ×2 (08:46→13:39)
[2022-04-08] MEDS ORDERED: NON-FORMULARY ITEM (Bisoprolol/Hydrochlorothiazide [Bisoprolol-Hctz 10-6.25 Mg Tab] 1 EACH PO SCH (10:00)
[2022-04-08] MEDS ORDERED: LEVETIRACETAM 750 MG PO SCH (10:00)
[2022-04-08] MEDS ORDERED: ZOLOFT 50 MG TABLET PO SCH (10:00)
[2022-04-08] MEDS ORDERED: Abilify 10 MG PO SCH (10:00)
[2022-04-08] MEDS ORDERED: PROTONIX 40 MG IV IV SCH (10:00)
[2022-04-08] MEDS ORDERED: lamICTAL 100MG TABLET PO SCH (10:00)
[2022-04-08] MEDS ORDERED: Singulair 10 MG PO SCH (10:00)
[2022-04-08] MEDS ORDERED: LAMOTRIGINE 25 MG PO SCH (10:00)
[2022-04-08] MEDS ORDERED: ETODOLAC 400 MG PO SCH (10:00)
--- NOTE | 2022-04-08 12:38 | PCM.HP ---
History of Present Illness - Chief Complaint Chief Complaint: CHEST PAIN RULE OUT ACUTE [place] History of Present Illness: is a 66 year old male patient of Dr Bhatt who presented to ER with chest pain. Patient reports it is a sharp stabbing pain.Hx left rib fractures 2 yrs ago ,happened when having a seizure . Serial troponins have been normal overnight and patient is painfree now. BNP was mildly elevated. CXR was wnl,no cardiomegally. PMHx includes DM2 on oral meds with A1C= 6.22 % ,HTN, former smoker,Hx seizure,Hx GI bleed. See ROS. - Review of Systems Constitutional: No Symptoms Eyes: No Symptoms Ears, Nose, & Throat: No Symptoms Respiratory: No Symptoms Cardiac: Chest Pain, No Edema, No Palpitations, No Syncope Abdominal/Gastrointestinal: No Symptoms Genitourinary Symptoms: No Symptoms Musculoskeletal: Injury (Hx left rib fx 2 yrs ago) Skin: No Symptoms Neurological: Other (Hx seizure), No Dizziness, No Focal Weakness, No Headache, No Speech Changes Endocrine: No Symptoms, Other (DM2 controlled on oral meds) Hematologic/Lymphatic: Other (Hx GI bleed) Medications & Allergies Home Medications: Home Medication List ALPRAZolam 0.5 MG [xanAX 0.5 MG] 0.5 mg PO HS 10/04/17 [History Confirmed 04/07/22] Bisoprolol/Hydrochlorothiazide [Bisoprolol-Hctz 10-6.25 mg Tab] 1 tab PO DAILY 10/04/17 [History Confirmed 04/07/22] Pravastatin Sodium 40 mg PO HS 10/04/17 [History Confirmed 04/07/22] Sertraline HCl 100 mg PO DAILY 10/04/17 [History Confirmed 04/07/22] lamoTRIgine [Lamotrigine] 50 mg PO BID 10/04/17 [History Confirmed 04/07/22] levETIRAcetam [Levetiracetam] 1,000 mg PO QID 10/04/17 [History Confirmed 04/07/22] Etodolac 400 mg [Lodine 400 mg] 400 mg PO BID 06/20/21 [History Confirmed 04/07/22] Metformin HCl 500 mg [Glucophage 500 MG] 1 ea BID 06/20/21 [History Confirmed 04/07/22] ARIPiprazole [Aripiprazole] 5 mg PO DAILY 04/07/22 [History Confirmed 04/07/22] Montelukast Sodium 10 mg [Singulair 10 MG] 10 mg PO DAILY 04/07/22 [History Confirmed 04/07/22] Allergies/Adverse Reactions: Allergies Allergy/AdvReac Type Severity Reaction Status Date / Time Penicillins Allergy Verified 04/07/22 13:11 - Past Medical History Past Medical History: Yes Neurological History: Epilepsy ENT History: No Pertinent History Cardiac History: High Cholesterol, Hypertension Respiratory History: No Pertinent History Endocrine Medical History: Diabetes Type II Musculoskelatal History: No Pertinent History GI Medical History: GI Bleed, Other History: No Pertinent History Pyscho-Social History: Depression Male Reproductive Disorders: No Pertinent History Comment: perforated bowel, covid 19 - Past Surgical History Past Surgical History: No Neuro Surgical History: No Pertinent History Cardiac History: No Pertinent History Respiratory Surgery: No Pertinent History GI Surgical History: No Pertinent History Genitourinary Surgical Hx: No Pertinent History Musculskeletal Surgical Hx: No Pertinent History Male Surgical History: No Pertinent History - Social History Smoking Status: Former smoker Exposure to second hand smoke: No Alcohol: Occasionally Drug Use: none Significant Family History: no pertinent family hx - Physical Exam Vital Signs: Vital Signs - 24 hr Temp Pulse Resp BP Pulse Ox 04/08/22 07:55 97.7 F 62 18 134/77 95 04/08/22 06:39 75 16 95 04/08/22 04:00 98.2 F 65 18 108/59 97 04/08/22 00:00 98.2 F 70 18 117/65 94 L 04/07/22 20:00 98.2 F 68 20 106/59 97 04/07/22 17:41 66 18 97 04/07/22 17:05 98.7 F 73 17 157/86 96 04/07/22 15:11 59 L 17 140/83 97 04/07/22 14:33 99 04/07/22 14:05 57 L 17 130/77 98 04/07/22 12:53 97.2 F 60 22 149/85 99 General Appearance: no apparent distress Neurologic Exam: alert, oriented x 3, cooperative, normal mood/affect, nml cerebellar function, nml station & gait Eye Exam: eyes nml inspection Ears, Nose, Throat Exam: normal ENT inspection Neck Exam: normal inspection Respiratory Exam: normal breath sounds Cardiovascular Exam: regular rate/rhythm Gastrointestinal/Abdomen Exam: soft, normal bowel sounds, No tenderness Rectal Exam: not done Back Exam: muscle spasm, point tenderness (left ant lateral mid rib cage), other (lateral curvature of lumbar to thoracic spine) Extremity Exam: normal range of motion, No calf tenderness, No pedal edema Skin Exam: normal color, warm, dry Results - Labs Lab/Micro Results: Lab Results-Last 24 Hours 04/07/22 04/07/22 04/07/22 Range/Units 13:15 13:15 13:15 WBC 7.0 (4.0-10.5) x10^3/uL RBC 4.76 (4.1-5.6) x10^6/uL Hgb 13.7 (12.5-18.0) g/dL Hct 41.1 L (42-50) % MCV 86.3 (78-100) fL MCH 28.8 (26-32) pg MCHC 33.3 (32-36) g/dL RDW 13.2 (11.5-14.0) % Plt Count 174 (150-450) x10^3/uL MPV 11.9 H (7.5-11.0) fL Gran % 70.1 H (36.0-66.0) % Immature Gran % (Auto) 0.4 (0.00-0.4) % Nucleat RBC Rel Count 0.0 (0.00-0.1) % Eos # (Auto) 0.20 (0-0.5) x10^3/uL Immature Gran # (Auto) 0.03 (0.00-0.03) x10^3u/L Absolute Lymphs (auto) 1.46 (1.0-4.6) x10^3/uL Absolute Monos (auto) 0.38 (0.0-1.3) x10^3/uL Absolute Nucleated RBC 0.00 (0.00-0.01) x10^3u/L Lymphocytes % 20.9 L (24.0-44.0) % Monocytes % 5.4 (0.0-12.0) % Eosinophils % 2.9 (0.00-5.0) % Basophils % 0.3 (0.0-0.4) % Absolute Granulocytes 4.91 (1.4-6.9) x10^3/uL Basophils # 0.02 (0-0.4) x10^3/uL Sodium 140 (137-145) mmol/L Potassium 4.3 (3.5-5.1) mmol/L Chloride 105 (98-107) mmol/L Carbon Dioxide 26 (22-30) mmol/L Anion Gap 13.3 (5-15) MEQ/L BUN 9 (9-20) mg/dL Creatinine 0.67 (0.66-1.25) mg/dL Estimated GFR > 60.0 ML/MIN Glucose 125 H (74-106) mg/dL POC Glucometer (74 to 106) mg/dL Hemoglobin A1c (4.5-6.0) % Calcium 10.0 (8.4-10.2) mg/dL Total Bilirubin 0.50 (0.2-1.3) mg/dL AST 22 (17-59) U/L ALT 16 (0-50) U/L Alkaline Phosphatase 110 (38-126) U/L Creatine Kinase 55 (55-170) U/L Troponin I < 0.012 (0.000-0.034) ng/mL NT-Pro-B Natriuret Pep 980 H (0-900) pg/mL Serum Total Protein 7.0 (6.3-8.2) g/dL Albumin 4.5 (3.5-5.0) g/dL Influenza Type A Ag (NEGATIVE) Influenza Type B Ag (NEGATIVE) RSV (PCR) (Negative) SARS-CoV-2 (PCR) (NEGATIVE) 04/07/22 04/07/22 04/07/22 Range/Units 14:26 17:38 18:29 WBC (4.0-10.5) x10^3/uL RBC (4.1-5.6) x10^6/uL Hgb (12.5-18.0) g/dL Hct (42-50) % MCV (78-100) fL MCH (26-32) pg MCHC (32-36) g/dL RDW (11.5-14.0) % Plt Count (150-450) x10^3/uL MPV (7.5-11.0) fL Gran % (36.0-66.0) % Immature Gran % (Auto) (0.00-0.4) % Nucleat RBC Rel Count (0.00-0.1) % Eos # (Auto) (0-0.5) x10^3/uL Immature Gran # (Auto) (0.00-0.03) x10^3u/L Absolute Lymphs (auto) (1.0-4.6) x10^3/uL Absolute Monos (auto) (0.0-1.3) x10^3/uL Absolute Nucleated RBC (0.00-0.01) x10^3u/L Lymphocytes % (24.0-44.0) % Monocytes % (0.0-12.0) % Eosinophils % (0.00-5.0) % Basophils % (0.0-0.4) % Absolute Granulocytes (1.4-6.9) x10^3/uL Basophils # (0-0.4) x10^3/uL Sodium (137-145) mmol/L Potassium (3.5-5.1) mmol/L Chloride (98-107) mmol/L Carbon Dioxide (22-30) mmol/L Anion Gap (5-15) MEQ/L BUN (9-20) mg/dL Creatinine (0.66-1.25) mg/dL Estimated GFR ML/MIN Glucose (74-106) mg/dL POC Glucometer (74 to 106) mg/dL Hemoglobin A1c 6.22 H (4.5-6.0) % Calcium (8.4-10.2) mg/dL Total Bilirubin (0.2-1.3) mg/dL AST (17-59) U/L ALT (0-50) U/L Alkaline Phosphatase (38-126) U/L Creatine Kinase (55-170) U/L Troponin I < 0.012 (0.000-0.034) ng/mL NT-Pro-B Natriuret Pep (0-900) pg/mL Serum Total Protein (6.3-8.2) g/dL Albumin (3.5-5.0) g/dL Influenza Type A Ag NEGATIVE (NEGATIVE) Influenza Type B Ag NEGATIVE (NEGATIVE) RSV (PCR) NEGATIVE (Negative) SARS-CoV-2 (PCR) NEGATIVE (NEGATIVE) 01/05/23 01/05/23 01/06/23 Range/Units 21:46 23:15 05:30 WBC 6.8 (4.0-10.5) x10^3/uL RBC 4.38 (4.1-5.6) x10^6/uL Hgb 12.3 L (12.5-18.0) g/dL Hct 38.8 L (42-50) % MCV 88.6 (78-100) fL MCH 28.1 (26-32) pg MCHC 31.7 L (32-36) g/dL RDW 13.2 (11.5-14.0) % Plt Count 147 L (150-450) x10^3/uL MPV 11.4 H (7.5-11.0) fL Gran % 60.0 (36.0-66.0) % Immature Gran % (Auto) 0.3 (0.00-0.4) % Nucleat RBC Rel Count 0.0 (0.00-0.1) % Eos # (Auto) 0.26 (0-0.5) x10^3/uL Immature Gran # (Auto) 0.02 (0.00-0.03) x10^3u/L Absolute Lymphs (auto) 1.94 (1.0-4.6) x10^3/uL Absolute Monos (auto) 0.49 (0.0-1.3) x10^3/uL Absolute Nucleated RBC 0.00 (0.00-0.01) x10^3u/L Lymphocytes % 28.4 (24.0-44.0) % Monocytes % 7.2 (0.0-12.0) % Eosinophils % 3.8 (0.00-5.0) % Basophils % 0.3 (0.0-0.4) % Absolute Granulocytes 4.09 (1.4-6.9) x10^3/uL Basophils # 0.02 (0-0.4) x10^3/uL Sodium (137-145) mmol/L Potassium (3.5-5.1) mmol/L Chloride (98-107) mmol/L Carbon Dioxide (22-30) mmol/L Anion Gap (5-15) MEQ/L BUN (9-20) mg/dL Creatinine (0.66-1.25) mg/dL Estimated GFR ML/MIN Glucose (74-106) mg/dL POC Glucometer 119 H (74 to 106) mg/dL Hemoglobin A1c (4.5-6.0) % Calcium (8.4-10.2) mg/dL Total Bilirubin (0.2-1.3) mg/dL AST (17-59) U/L ALT (0-50) U/L Alkaline Phosphatase (38-126) U/L Creatine Kinase (55-170) U/L Troponin I < 0.012 (0.000-0.034) ng/mL NT-Pro-B Natriuret Pep (0-900) pg/mL Serum Total Protein (6.3-8.2) g/dL Albumin (3.5-5.0) g/dL Influenza Type A Ag (NEGATIVE) Influenza Type B Ag (NEGATIVE) RSV (PCR) (Negative) SARS-CoV-2 (PCR) (NEGATIVE) 04/08/22 04/08/22 04/08/22 Range/Units 05:30 07:28 11:30 WBC (4.0-10.5) x10^3/uL RBC (4.1-5.6) x10^6/uL Hgb (12.5-18.0) g/dL Hct (42-50) % MCV (78-100) fL MCH (26-32) pg MCHC (32-36) g/dL RDW (11.5-14.0) % Plt Count (150-450) x10^3/uL MPV (7.5-11.0) fL Gran % (36.0-66.0) % Immature Gran % (Auto) (0.00-0.4) % Nucleat RBC Rel Count (0.00-0.1) % Eos # (Auto) (0-0.5) x10^3/uL Immature Gran # (Auto) (0.00-0.03) x10^3u/L Absolute Lymphs (auto) (1.0-4.6) x10^3/uL Absolute Monos (auto) (0.0-1.3) x10^3/uL Absolute Nucleated RBC (0.00-0.01) x10^3u/L Lymphocytes % (24.0-44.0) % Monocytes % (0.0-12.0) % Eosinophils % (0.00-5.0) % Basophils % (0.0-0.4) % Absolute Granulocytes (1.4-6.9) x10^3/uL Basophils # (0-0.4) x10^3/uL Sodium 139 (137-145) mmol/L Potassium 3.9 (3.5-5.1) mmol/L Chloride 103 (98-107) mmol/L Carbon Dioxide 31 H (22-30) mmol/L Anion Gap 9.4 (5-15) MEQ/L BUN 13 (9-20) mg/dL Creatinine 0.81 (0.66-1.25) mg/dL Estimated GFR > 60.0 ML/MIN Glucose 125 H (74-106) mg/dL POC Glucometer 129 H 128 H (74 to 106) mg/dL Hemoglobin A1c (4.5-6.0) % Calcium 9.1 (8.4-10.2) mg/dL Total Bilirubin 0.40 (0.2-1.3) mg/dL AST 20 (17-59) U/L ALT 16 (0-50) U/L Alkaline Phosphatase 76 (38-126) U/L Creatine Kinase (55-170) U/L Troponin I (0.000-0.034) ng/mL NT-Pro-B Natriuret Pep (0-900) pg/mL Serum Total Protein 6.2 L (6.3-8.2) g/dL Albumin 3.7 (3.5-5.0) g/dL Influenza Type A Ag (NEGATIVE) Influenza Type B Ag (NEGATIVE) RSV (PCR) (Negative) SARS-CoV-2 (PCR) (NEGATIVE) Accuchecks Date 04/08/22 Time 07:55 - Radiology Impressions Radiology Exams & Impressions: Radiology Procedures Category Date Time Status CHEST 1 VIEW (PORTABLE) Stat Exams 04/07/22 13:27 Completed ECHO W/2D AND DOPPLER [US] Routine Exams 04/08/22 12:32 Ordered Assessment/Plan (1) Chest pain, rule out acute myocardial infarction Current Visit: Yes Status: Resolved Code(s): R07.9 - CHEST PAIN, UNSPECIFIED (2) Anterior chest wall pain Current Visit: Yes Status: Acute Code(s): R07.89 - OTHER CHEST PAIN (3) Diabetes type 2, controlled Current Visit: Yes Status: Chronic Code(s): E11.9 - TYPE 2 DIABETES MELLITUS WITHOUT COMPLICATIONS (4) Elevated brain natriuretic peptide (BNP) level Current Visit: Yes Status: Acute Assessment & Plan: ECHO and follow up appt with General Passenger Agent Dr Levin Code(s): R79.89 - OTHER SPECIFIED ABNORMAL FINDINGS OF BLOOD CHEMISTRY (5) Curvature of spine Current Visit: Yes Status: Acute Code(s): M43.9 - DEFORMING DORSOPATHY, UNSPECIFIED (6) Curvature of thoracic spine Current Visit: Yes Status: Acute Code(s): M43.9 - DEFORMING DORSOPATHY, UNSPECIFIED (7) HTN (hypertension) Current Visit: Yes Status: Chronic Assessment & Plan: controlled Code(s): I10 - ESSENTIAL (PRIMARY) HYPERTENSION (8) Hx of seizure disorder Current Visit: Yes Status: Resolved Assessment & Plan: will discuss with PCP,has been 2 yrs Code(s): Z86.69 - PERSONAL HISTORY OF DIS OF THE NERVOUS SYS AND SENSE ORGANS
[2022-04-08] MEDS ORDERED: Zanaflex 4 MG PO PRN (12:40)
[2022-04-08 12:50] VITALS: BP 133/67; PULSE 75; O2SAT 94
[2022-04-08] MEDS ORDERED: ZOCOR 20MG PO SCH (22:00)
[2022-04-08] MEDS ORDERED: xanAX 0.5 MG PO SCH (22:00)
[2022-04-08] MEDS ORDERED: NON-FORMULARY ITEM (Pravastatin Sodium [Pravastatin Sodium] 40 MG Tablet) PO SCH (22:00)
== END 2022-04-08 17:02 | disposition home or self-care (01) ==
LOC: ED 12:52 → MED SURG 16:59
PROVIDERS: ADMIT Family Medicine; ATTEND Family Medicine
DX: R07.9 Chest pain, unspecified (principal); E11.9 Type 2 diabetes mellitus without complications; I10 Essential (primary) hypertension; R79.89 Other specified abnormal findings of blood chemistry; M43.9 Deforming dorsopathy, unspecified; Z86.69 Personal history of other diseases of the nervous system and sense organs; Z79.899 Other long term (current) drug therapy; Z20.828 Contact with and (suspected) exposure to other viral communicable diseases
CPT/HCPCS: 0241U; 36000; 36415; 71045; 80053; 82550; 82947; 83036; 83880; 84484; 85025; 93005; 93041; 93306; 94760; 96374; 96375; 99285; 93268; J2270; J2405; A9270-GY; G0378

== ENCOUNTER 2023-06-09 14:10 | Emergency (ER) | payer MEDICARE ==
[2023-06-09 14:26] VITALS: TEMP 97.4
[2023-06-09] MEDS: BABY ASPIRIN 81 MG CHEW PO ONE (14:36)
[2023-06-09 14:40] LABS: Absolute Neutrophil Ct (ANC) 5.45 x10^3/uL (1.4-6.9); BASOPHIL % 0.2 % (0.0-0.4); Basophil (Absolute #) 0.02 x10^3/uL (0-0.4); Eosinophil % 4.5 % (0.00-5.0); Eosinophil (Absolute #) 0.38 x10^3/uL (0-0.5); Hematocrit 47.9 % (42-50); Hemoglobin 15.9 g/dL (12.5-18.0); IMMATURE GRAN # 0.03 x10^3u/L (0.00-0.03); IMMATURE GRAN % 0.4 % (0.00-0.4); Lymphocyte (Absolute #) 2.17 x10^3/uL (1.0-4.6); Lymphocytes % 25.8 % (24.0-44.0); Mean Cell Volume 85.5 fL (78-100); Mean Corpuscular Hemoglobin 28.4 pg (26-32); Mean Corpuscular Hgb Concent. 33.2 g/dL (32-36); Mean Platelet Volume 12.2 fL (7.5-11.0); Monocyte (Absolute #) 0.37 x10^3/uL (0.0-1.3); Monocytes % 4.4 % (0.0-12.0); Neutrophil % 64.7 % (36.0-66.0); Platelet Count 155 x10^3/uL (150-450); Red Cell Distribution Width 13.4 % (11.5-14.0); White Blood Count 8.4 x10^3/uL (4.0-10.5)
--- NOTE | 2023-06-09 14:51 | XRAY ---
Indication: Chest pain. Comparison: April 07, 2022 PA/lateral chest again demonstrates normal heart and lungs. Bony thorax intact again with osteopenia and old left rib fractures. No new/acute findings.
[2023-06-09 14:55] LABS: ALBUMIN 4.9 g/dL (3.5-5.0); ANION GAP 14.6 MEQ/L (5-15); BILIRUBIN,TOTAL 0.7 mg/dL (0.2-1.3); Calcium 10.3 mg/dL (8.4-10.2); Creatinine 1 0.85 mg/dL (0.66-1.25); EST GLOMERULAR FILTRATION RATE 95.2 ML/MIN; Potassium 3.5 mmol/L (3.5-5.1); Total Protein 7.7 g/dL (6.3-8.2)
--- NOTE | 2023-06-09 15:50 | ERPHSYRPT ---
- History of Present Illness Time Seen by Provider: 06/09/23 14:14 Source: patient Exam Limitations: no limitations Patient Subjective Stated Complaint: pt here for chest pain to left side of chest at rib area for last 3 days off and on, some sob, no cough, no fever, Triage Nursing Assessment: pt alert, walked in, resp easy, skin w/d/p. abd soft, occ cough, moves all ext well Physician History: Patient is here with left-sided chest pain. Has been on and off for 3 days. Some mild shortness of breath however no cough, fever, chills. Patient has never had a stress test done. He has been seen in this ER for noncardiac chest pain in the past. Nothing new or different, falls, trauma. Allergies/Adverse Reactions: Penicillins Allergy (Verified 06/09/23 14:12) Home Medications: ALPRAZolam 0.5 MG [xanAX 0.5 MG] 0.5 mg PO HS 10/04/17 [History] Bisoprolol/Hydrochlorothiazide [Bisoprolol-Hctz 10-6.25 mg Tab] 1 tab PO DAILY 10/04/17 [History] Pravastatin Sodium 40 mg PO HS 10/04/17 [History] Sertraline HCl 100 mg PO DAILY 10/04/17 [History] lamoTRIgine [Lamotrigine] 50 mg PO BID 10/04/17 [History] levETIRAcetam [Levetiracetam] 1,000 mg PO QID 10/04/17 [History] Etodolac 400 mg [Lodine 400 mg] 400 mg PO BID 06/20/21 [History] Metformin HCl 500 mg [Glucophage 500 MG] 1 ea BID 06/20/21 [History] ARIPiprazole [Aripiprazole] 5 mg PO DAILY 04/07/22 [History] Montelukast Sodium 10 mg [Singulair 10 MG] 10 mg PO DAILY 04/07/22 [History] Hx Tetanus, Diphtheria Vaccination/Date Given: Yes Hx Influenza Vaccination/Date Given: Yes Hx Pneumococcal Vaccination/Date Given: Yes Immunizations Up to Date: Yes Travel Risk - International Travel Have you traveled outside of the country in past 3 weeks: No - Coronavirus Screening Are you exhibiting any of the following symptoms?: No Close contact with a COVID-19 positive Pt in past 14-21 Days: No - Vaccine Status Have you recieved a Covid-19 vaccination: Yes 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 - Vaccination Dates Date of 2cond Vaccination (if applicable): UNSURE - Past Medical History Pertinent Past Medical History: Yes Neurological History: Epilepsy ENT History: No Pertinent History Cardiac History: High Cholesterol, Hypertension Respiratory History: No Pertinent History Endocrine Medical History: Diabetes Type II Musculoskeletal History: No Pertinent History GI Medical History: GI Bleed, Ulcer, Other History: No Pertinent History Psycho-Social History: Depression Male Reproductive Disorders: No Pertinent History Other Medical History: perforated bowel, covid 19 - Past Surgical History Past Surgical History: No Neuro Surgical History: No Pertinent History Cardiac: No Pertinent History Respiratory: No Pertinent History Gastrointestinal: No Pertinent History Genitourinary: No Pertinent History Musculoskeletal: No Pertinent History Male Surgical History: No Pertinent History - Social History Smoking Status: Former smoker Exposure to second hand smoke: No Drug Use: none Patient Lives Alone: No Significant Family History: no pertinent family hx - Nursing Vital Signs Nursing Vital Signs: Initial Vital Signs Pulse Rate 68 06/09/23 14:16 Respiratory Rate 17 06/09/23 14:16 Blood Pressure 184/95 06/09/23 14:16 O2 Sat by Pulse Oximetry 97 06/09/23 14:16 Pain Scale Pain Intensity 0 - Physical Exam SpO2 Interpretation: normal SpO2: 98 Comments: 06/09/23 15:48 Review of Systems Constitutional: Negative for fever. HENT: Negative for congestion. Respiratory: Negative for shortness of breath. Cardiovascular: Chest pain Gastrointestinal: Negative for abdominal pain. Genitourinary: Negative for dysuria. Musculoskeletal: Negative for back pain. Skin: Negative for rash. Neurological: Negative for headaches. Psychiatric/Behavioral: Negative for behavioral problems. All other systems reviewed and are negative. Physical Exam Vitals signs and nursing note reviewed. Constitutional: Appearance: Patient is well-developed. HENT: Head: Normocephalic and atraumatic. Eyes: Conjunctiva/sclera: Conjunctivae normal. Neck: Musculoskeletal: Normal range of motion. Trachea: No tracheal deviation. Cardiovascular: Rate and Rhythm: Normal rate. Pulmonary: Effort: Pulmonary effort is normal. No respiratory distress. Abdominal: Palpations: Abdomen is soft. Musculoskeletal: General: No deformity. Skin: General: Skin is warm and dry. Neurological/ Psychiatric: Mental Status: Mental status, behavior, interaction with environment is appropriate for patient's age and condition - Course Nursing assessment & vital signs reviewed: Yes EKG Interpreted by Me: Sinus Rhythm (EKG read as A-fib however when I review it I do see distinct P waves, lots of artifact, rate of 67, QTc is 462, lower suspicion for true A-fib today) Ordered Tests: Active Orders 24 hr Category Date Time Status EKG-ER Only STAT Care 06/09/23 14:21 Completed IV Insertion STAT Care 06/09/23 14:21 Completed CHEST 2 VIEWS (PA AND LAT) Stat Exams 06/09/23 14:21 Completed CBC W DIFF Stat Lab 06/09/23 14:21 Completed CK-Creatinine Phosphokinase Stat Lab 06/09/23 14:30 Completed CMP Stat Lab 06/09/23 14:30 Completed NT PRO BNPII Stat Lab 06/09/23 14:30 Completed TROPONIN Q4H Lab 06/09/23 14:30 Completed TROPONIN Q4H Lab 06/09/23 16:13 Completed TROPONIN Q4H Lab 06/09/23 22:30 Ordered Medication Summary Discontinued Medications Generic Name Dose Route Start Last Admin Trade Name Freq PRN Reason Stop Dose Admin Aspirin 324 mg 06/09/23 14:21 06/09/23 14:36 Aspirin 81 Mg Tab.Chew PO 06/09/23 14:22 324 mg STAT ONE Administration Lab/Rad Data: Laboratory Result Diagrams 06/09/23 14:21 06/09/23 14:30 Laboratory Results 06/09/23 06/09/23 06/09/23 Range/Units 16:13 14:30 14:30 WBC (4.0-10.5) x10^3/uL RBC (4.1-5.6) x10^6/uL Hgb (12.5-18.0) g/dL Hct (42-50) % MCV (78-100) fL MCH (26-32) pg MCHC (32-36) g/dL RDW (11.5-14.0) % Plt Count (150-450) x10^3/uL MPV (7.5-11.0) fL Gran % (36.0-66.0) % Immature Gran % (Auto) (0.00-0.4) % Nucleat RBC Rel Count (0.00-0.1) % Eos # (Auto) (0-0.5) x10^3/uL Immature Gran # (Auto) (0.00-0.03) x10^3u/L Absolute Lymphs (auto) (1.0-4.6) x10^3/uL Absolute Monos (auto) (0.0-1.3) x10^3/uL Absolute Nucleated RBC (0.00-0.01) x10^3u/L Lymphocytes % (24.0-44.0) % Monocytes % (0.0-12.0) % Eosinophils % (0.00-5.0) % Basophils % (0.0-0.4) % Absolute Granulocytes (1.4-6.9) x10^3/uL Basophils # (0-0.4) x10^3/uL Sodium (135-145) mmol/L Potassium (3.5-5.1) mmol/L Chloride (98-107) mmol/L Carbon Dioxide (22-30) mmol/L Anion Gap (5-15) MEQ/L BUN (9-20) mg/dL Creatinine (0.66-1.25) mg/dL Estimated GFR ML/MIN Glucose (74-106) mg/dL Calcium (8.4-10.2) mg/dL Total Bilirubin (0.2-1.3) mg/dL AST (17-59) U/L ALT (0-50) U/L Alkaline Phosphatase (38-126) U/L Creatine Kinase (55-170) U/L Troponin I < 0.012 < 0.012 (0.000-0.034) ng/mL NT-Pro-B Natriuret Pep 976 (<300) pg/mL Serum Total Protein (6.3-8.2) g/dL Albumin (3.5-5.0) g/dL 06/09/23 06/09/23 Range/Units 14:30 14:21 WBC 8.4 (4.0-10.5) x10^3/uL RBC 5.60 (4.1-5.6) x10^6/uL Hgb 15.9 (12.5-18.0) g/dL Hct 47.9 (42-50) % MCV 85.5 (78-100) fL MCH 28.4 (26-32) pg MCHC 33.2 (32-36) g/dL RDW 13.4 (11.5-14.0) % Plt Count 155 (150-450) x10^3/uL MPV 12.2 H (7.5-11.0) fL Gran % 64.7 (36.0-66.0) % Immature Gran % (Auto) 0.4 (0.00-0.4) % Nucleat RBC Rel Count 0.0 (0.00-0.1) % Eos # (Auto) 0.38 (0-0.5) x10^3/uL Immature Gran # (Auto) 0.03 (0.00-0.03) x10^3u/L Absolute Lymphs (auto) 2.17 (1.0-4.6) x10^3/uL Absolute Monos (auto) 0.37 (0.0-1.3) x10^3/uL Absolute Nucleated RBC 0.00 (0.00-0.01) x10^3u/L Lymphocytes % 25.8 (24.0-44.0) % Monocytes % 4.4 (0.0-12.0) % Eosinophils % 4.5 (0.00-5.0) % Basophils % 0.2 (0.0-0.4) % Absolute Granulocytes 5.45 (1.4-6.9) x10^3/uL Basophils # 0.02 (0-0.4) x10^3/uL Sodium 142 (135-145) mmol/L Potassium 3.5 (3.5-5.1) mmol/L Chloride 101 (98-107) mmol/L Carbon Dioxide 30 (22-30) mmol/L Anion Gap 14.6 (5-15) MEQ/L BUN 14 (9-20) mg/dL Creatinine 0.85 (0.66-1.25) mg/dL Estimated GFR 95.2 ML/MIN Glucose 177 H (74-106) mg/dL Calcium 10.3 H (8.4-10.2) mg/dL Total Bilirubin 0.70 (0.2-1.3) mg/dL AST 25 (17-59) U/L ALT 22 (0-50) U/L Alkaline Phosphatase 89 (38-126) U/L Creatine Kinase 47 L (55-170) U/L Troponin I (0.000-0.034) ng/mL NT-Pro-B Natriuret Pep (<300) pg/mL Serum Total Protein 7.7 (6.3-8.2) g/dL Albumin 4.9 (3.5-5.0) g/dL - Progress Progress: improved Progress Note: 06/09/23 15:49 Differential diagnosis includes: PNA, STEMI, NSTEMI, other infection, musculoske letal pain, pneumothorax - We'll obtain basic labs, fluids, EKG, troponin, chest x-ray - EKG shows no ST changes - my read - O2 saturations consistently greater than 95%. - CXR shows no pneumonia, pneumothorax - my read 06/09/23 17:29 Patient had 2 negative troponins over the course of ER stay. We did have a repeat EKG that clearly demonstrated sinus rhythm without signs of atrial fib. I do believe that initial EKG was artifact. Patient has no chest pain at this point in time. Overall feels improved. I do believe that given this is his second visit for chest pain in 1 year, he is 67, does have some risk factors I believe he needs close outpatient follow-up with cardiology. Therefore, I did place this in the discharge summary and discussed it with the patient and his . They state they will try to get seen as soon as possible. In the meantime, they will return here sooner for any new or changing symptoms. 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 You may return here sooner for any new or changing symptoms. Also call your PCP for follow-up in the next 1 to 2 days [id number] [place] [address] [place] [id number]
[2023-06-09 16:08] VITALS: BP 172/102; PULSE 67; RESP 13
[2023-06-09 17:03] VITALS: O2SAT 98
== END 2023-06-09 17:12 | disposition home or self-care (01) ==
LOC: ED 14:10
DX: R07.9 Chest pain, unspecified (principal); I10 Essential (primary) hypertension; E78.5 Hyperlipidemia, unspecified; E11.9 Type 2 diabetes mellitus without complications; Z86.16 Personal history of COVID-19; Z79.899 Other long term (current) drug therapy; Z20.828 Contact with and (suspected) exposure to other viral communicable diseases
CPT/HCPCS: 36000; 36415; 71046; 80053; 82550; 83880; 84484; 85025; 93005; 99284; A9270-GY

== ENCOUNTER 2023-08-09 20:17 | Emergency (ER) | payer MEDICARE ==
--- NOTE | 2023-08-09 20:41 | ERPHSYRPT ---
- History of Present Illness Time Seen by Provider: 08/09/23 20:25 Source: patient Exam Limitations: no limitations Physician History: Patient is a 68-year-old male with a history of epilepsy presents to our ED for evaluation post 2 breakthrough seizures. reports patient has a breakthrough seizure about once every 3 months. However his seizures occur once and not twice. She reports patient had 2 seizures today. Patient had a seizure at 11 AM. Patient had a second seizure at 3 PM. Patient went to bed after his 3 PM seizure and awoke confused. states this is not normal for him. Normally he recovers well and is back to his baseline after 1 seizure. Patient has not missed any doses of medications. No fevers. No trauma. No chemical exposures. states patient takes all medications as prescribed. She denies trauma. No head injuries or falls related to his seizures today. She voices no other complaints or concerns at this time. HPI obtained from as patient is currently confused and unable to provide information towards his HPI Portions of this note were created with voice recognition technology. There may be grammatical, spelling, punctuation or sound alike errors Timing/Duration: today Severity: moderate Modifying Factors: Improves With: nothing Associated Symptoms: denies symptoms Allergies/Adverse Reactions: Penicillins Allergy (Verified 08/09/23 20:19) Home Medications: ALPRAZolam 0.5 MG [xanAX 0.5 MG] 0.5 mg PO HS 10/04/17 [History] Bisoprolol/Hydrochlorothiazide [Bisoprolol-Hctz 10-6.25 mg Tab] 1 tab PO DAILY 10/04/17 [History] Pravastatin Sodium 40 mg PO HS 10/04/17 [History] Sertraline HCl 100 mg PO DAILY 10/04/17 [History] lamoTRIgine [Lamotrigine] 50 mg PO BID 10/04/17 [History] levETIRAcetam [Levetiracetam] 1,000 mg PO BID 10/04/17 [History] Etodolac 400 mg [Lodine 400 mg] 400 mg PO BID 06/20/21 [History] Metformin HCl 500 mg [Glucophage 500 MG] 1 ea BID 06/20/21 [History] ARIPiprazole [Aripiprazole] 5 mg PO DAILY 04/07/22 [History] Montelukast Sodium 10 mg [Singulair 10 MG] 10 mg PO DAILY 04/07/22 [History] Hx Tetanus, Diphtheria Vaccination/Date Given: Yes Hx Influenza Vaccination/Date Given: Yes Hx Pneumococcal Vaccination/Date Given: Yes - Review of Systems Constitutional: No Symptoms, No Fever, No Chills Eyes: No Symptoms Ears, Nose, & Throat: No Symptoms Respiratory: No Symptoms, No Cough, No Dyspnea Cardiac: No Symptoms, No Chest Pain, No Edema, No Syncope Abdominal/Gastrointestinal: No Symptoms, No Abdominal Pain, No Nausea, No Vomiting, No Diarrhea Genitourinary Symptoms: No Symptoms, No Dysuria Musculoskeletal: No Symptoms, No Back Pain, No Neck Pain Skin: No Symptoms, No Rash Neurological: No Symptoms, No Dizziness, No Focal Weakness, No Sensory Changes Psychological: No Symptoms Endocrine: No Symptoms Hematologic/Lymphatic: No Symptoms Immunological/Allergic: No Symptoms All Other Systems: Reviewed and Negative - Past Medical History Pertinent Past Medical History: Yes Neurological History: Epilepsy ENT History: No Pertinent History Cardiac History: High Cholesterol, Hypertension Respiratory History: No Pertinent History Endocrine Medical History: Diabetes Type II Musculoskeletal History: No Pertinent History GI Medical History: GI Bleed, Ulcer, Other History: No Pertinent History Psycho-Social History: Depression Male Reproductive Disorders: No Pertinent History Other Medical History: perforated bowel, covid 19 - Past Surgical History Past Surgical History: No Neuro Surgical History: No Pertinent History Cardiac: No Pertinent History Respiratory: No Pertinent History Gastrointestinal: No Pertinent History Genitourinary: No Pertinent History Musculoskeletal: No Pertinent History Male Surgical History: No Pertinent History Significant Family History: no pertinent family hx - Social History Smoking Status: Former smoker Exposure to second hand smoke: No Drug Use: none Patient Lives Alone: No - Nursing Vital Signs Nursing Vital Signs: Initial Vital Signs Temperature 101.4 F 08/09/23 20:18 Pulse Rate 112 H 08/09/23 20:18 Respiratory Rate 24 08/09/23 20:18 Blood Pressure 171/94 08/09/23 20:18 O2 Sat by Pulse Oximetry 95 08/09/23 20:18 - Physical Exam General Appearance: no apparent distress, alert Eye Exam: PERRL/EOMI, eyes nml inspection Ears, Nose, Throat Exam: normal ENT inspection, TMs normal, pharynx normal, moist mucous membranes Neck Exam: normal inspection, non-tender, supple, full range of motion, No Brudzinski, No Kernig's Respiratory Exam: normal breath sounds, lungs clear, airway intact, No respiratory distress Cardiovascular Exam: regular rate/rhythm, normal heart sounds, normal peripheral pulses Gastrointestinal/Abdomen Exam: soft, normal bowel sounds, No tenderness, No mass Back Exam: normal inspection, normal range of motion, No CVA tenderness, No vertebral tenderness Extremity Exam: normal inspection, normal range of motion, pelvis stable Neurologic Exam: alert, oriented x 3, cooperative, normal mood/affect, nml cerebellar function, nml station & gait, sensation nml, No motor deficits Skin Exam: normal color, warm, dry, No rash Lymphatic Exam: No adenopathy SpO2 Interpretation: normal SpO2: 95 O2 Delivery: Room Air - Course Nursing assessment & vital signs reviewed: Yes EKG Interpreted by Me: RATE ([id number]), Sinus Tach, NORMAL AXIS, NORMAL INTERVALS - Radiology Exams Chest X-ray Interpretation: Interpreted by me (No acute findings) - CT Exams Head CT Interpretation: Tele-radiologist Report (Again nonacute senile brain compared to 02/19/2021) Ordered Tests: Active Orders 24 hr Category Date Time 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 Care 08/09/23 20:37 Active Cath [Catheter-[place]] STAT Care 08/09/23 21:20 Active EKG-ER Only STAT Care 08/09/23 20:36 Active IV Insertion STAT Care 08/09/23 20:36 Active Pulse Oximetry (ED) STAT Care 08/09/23 20:36 Active CHEST 1 VIEW (PORTABLE) Stat Exams 08/09/23 22:14 Taken HEAD WITHOUT CONTRAST [CT] Stat Exams 08/09/23 20:35 Taken ACETAMINOPHEN Stat Lab 08/09/23 20:49 Completed BLOOD CULTURE Stat Lab 08/09/23 20:52 Received CBC Q48H Lab 08/11/23 06:00 Ordered CBC Q48H Lab 08/13/23 06:00 Ordered CBC Q48H Lab 08/15/23 06:00 Ordered CBC Q48H Lab 08/17/23 06:00 Ordered CBC Q48H Lab 08/19/23 06:00 Ordered CBC Q48H Lab 08/21/23 06:00 Ordered CBC Q48H Lab 08/23/23 06:00 Ordered CBC Stat Lab 08/10/23 02:07 Completed CBC W DIFF Stat Lab 08/09/23 20:36 Completed CMP Stat Lab 08/09/23 20:49 Completed ETHYL ALCOHOL Stat Lab 08/09/23 20:49 Completed Lactic Acid Stat Lab 08/09/23 20:36 Completed PROTIME WITH INR Stat Lab 08/10/23 02:07 Completed PTT Stat Lab 08/10/23 02:07 Completed SALICYLATE Stat Lab 08/09/23 20:49 Completed TROPONIN Q4H Lab 08/09/23 20:49 Completed TROPONIN Q4H Lab 08/10/23 00:30 Completed TROPONIN Q4H Lab 08/10/23 04:45 Ordered UA W/RFX UR CULTURE Stat Lab 08/09/23 20:50 Completed Urine Triage Profile Stat Lab 08/09/23 20:50 Completed Medication Summary Generic Name Dose Route Start Last Admin Trade Name Freq PRN Reason Stop Dose Admin Magnesium Sulfate/Dextrose 100 mls @ 100 mls/hr 08/09/23 21:30 08/09/23 22:14 Magnesium 1 Gm / 100 Ml D5w IV 08/09/23 23:29 100 mls/hr Q1H SHERIN Administration Potassium Chloride 20 meq in 100 mls @ 50 mls/hr 08/09/23 21:30 08/09/23 23:41 Potassium Chloride 20 Meq In Water 100ml IV 08/10/23 01:29 50 mls/hr Q2H SHERIN Administration Sodium Chloride 1,000 mls @ 100 mls/hr 08/09/23 21:45 08/10/23 02:00 Sodium Chloride 0.9% 1000 Ml IV 09/08/23 21:44 Infused .Q10H SHERIN Infusion Heparin Sodium/Dextrose 25,000 units in 250 mls @ 10 mls/hr 08/10/23 03:00 08/10/23 02:40 Heparin 25,000 Units/D5w: Use Order Set Ness IV 09/09/23 02:59 1,000 units/hr .Q24H SHERIN 10 mls/hr Administration Protocol 1,000 UNITS/HR Discontinued Medications Generic Name Dose Route Start Last Admin Trade Name Freq PRN Reason Stop Dose Admin Acetaminophen 975 mg 08/09/23 20:36 08/09/23 20:53 Acetaminophen 325 Mg Tablet PO 08/09/23 20:37 975 mg STAT STA Administration Acetaminophen Confirm 08/09/23 20:52 Acetaminophen 325 Mg Tablet Administered 08/09/23 20:53 Dose 975 mg .ROUTE .STK-MED ONE Aspirin 324 mg 08/10/23 01:40 08/10/23 02:07 Aspirin 81 Mg Tab.Chew PO 08/10/23 01:41 324 mg STAT ONE Administration Aspirin Confirm 08/10/23 02:02 Aspirin 81 Mg Tab.Chew Administered 08/10/23 02:03 Dose 324 mg .ROUTE .STK-MED ONE Heparin Sodium (Beef Lung) 5,000 unit 08/10/23 01:40 08/10/23 02:07 Heparin 5000 Units/0.5 Ml 5,000 Unit/0.5 Ml Syr IV 08/10/23 01:41 5,000 unit STAT ONE Administration Heparin Sodium (Beef Lung) Confirm 08/10/23 02:02 Heparin 5000 Units/0.5 Ml 5,000 Unit/0.5 Ml Syr Administered 08/10/23 02:03 Dose 5,000 unit .ROUTE .STK-MED ONE Sodium Chloride 1,000 mls @ 999 mls/hr 08/09/23 20:36 08/09/23 22:00 Sodium Chloride 0.9% 1000 Ml IV 08/09/23 21:36 Infused .Q1H1M STA Infusion Sodium Chloride Confirm 08/09/23 20:52 Sodium Chloride 0.9% 1000 Ml Administered 08/09/23 20:53 Dose 1,000 mls @ ud .ROUTE .STK-MED ONE Heparin Sodium/Dextrose 25,000 units in 250 mls @ 11.256 mls/hr 08/10/23 02:00 08/10/23 02:47 Heparin 25,000 Units/D5w: Use Order Set Ness IV 09/09/23 01:59 Not Given .[id number] SHERIN Protocol 12 UNITS/KG/HR Heparin Sodium/Dextrose Confirm 08/10/23 02:02 Heparin 25,000 Units/D5w: Use Order Set Ness Administered 08/10/23 02:03 Dose 25,000 units in 250 mls @ ud IV .STK-MED ONE Lab/Rad Data: Laboratory Result Diagrams 08/10/23 02:07 08/09/23 20:49 Laboratory Results 08/10/23 08/10/23 08/10/23 Range/Units 02:07 02:07 00:30 WBC 10.6 H (4.0-10.5) x10^3/uL RBC 4.74 (4.1-5.6) x10^6/uL Hgb 13.5 (12.5-18.0) g/dL Hct 40.3 L (42-50) % MCV 85.0 (78-100) fL MCH 28.5 (26-32) pg MCHC 33.5 (32-36) g/dL RDW 13.3 (11.5-14.0) % Plt Count 138 L (150-450) x10^3/uL MPV 11.6 H (7.5-11.0) fL Gran % (36.0-66.0) % Immature Gran % (Auto) (0.00-0.4) % Nucleat RBC Rel Count (0.00-0.1) % Eos # (Auto) (0-0.5) x10^3/uL Immature Gran # (Auto) (0.00-0.03) x10^3u/L Absolute Lymphs (auto) (1.0-4.6) x10^3/uL Absolute Monos (auto) (0.0-1.3) x10^3/uL Absolute Nucleated RBC (0.00-0.01) x10^3u/L Lymphocytes % (24.0-44.0) % Monocytes % (0.0-12.0) % Eosinophils % (0.00-5.0) % Basophils % (0.0-0.4) % Absolute Granulocytes (1.4-6.9) x10^3/uL Basophils # (0-0.4) x10^3/uL PT 11.1 (9.4-12.5) SECONDS INR 1.02 (0.8-3.0) APTT 26.5 (25.1-36.5) SECONDS Sodium (135-145) mmol/L Potassium (3.5-5.1) mmol/L Chloride (98-107) mmol/L Carbon Dioxide (22-30) mmol/L Anion Gap (5-15) MEQ/L BUN (9-20) mg/dL Creatinine (0.66-1.25) mg/dL Estimated GFR ML/MIN Glucose (74-106) mg/dL Lactic Acid (0.4-2.0) Calcium (8.4-10.2) mg/dL Total Bilirubin (0.2-1.3) mg/dL AST (17-59) U/L ALT (0-50) U/L Alkaline Phosphatase (38-126) U/L Troponin I 0.053 H* (0.000-0.033) ng/mL Serum Total Protein (6.3-8.2) g/dL Albumin (3.5-5.0) g/dL Urine Color (Yellow) Urine Appearance (Clear) Urine pH (4.6-8.0) Ur Specific [place] (1.005-1.030) Urine Protein (Negative) Urine Glucose (UA) (Negative) mg/dL Urine Ketones (Negative) Urine Blood (Negative) Urine Nitrite (Negative) Urine Bilirubin (Negative) Urine Urobilinogen (0.2) mg/dL Ur Leukocyte Esterase (Negative) U Hyaline Cast (Auto) (0-2) /LPF Urine Microscopic RBC (0-5) /HPF Urine Microscopic WBC (0-5) /HPF Ur Epithelial Cells (None Seen) /HPF Urine Bacteria (None Seen) /HPF Urine Culture Reflexed (NO) Salicylates (2-20) mg/dL Urine Opiates Level (NEGATIVE) Ur Methadone (NEGATIVE) Acetaminophen (10-30) ug/ml Urine Barbiturates (NEGATIVE) Ur Phencyclidine (PCP) (NEGATIVE) Urine Amphetamine (NEGATIVE) U Benzodiazepine Level (NEGATIVE) Urine Cocaine (NEGATIVE) Urine Marijuana (THC) (NEGATIVE) Ethyl Alcohol (0-10) mg/dL Influenza Type A Ag (NEGATIVE) Influenza Type B Ag (NEGATIVE) RSV (PCR) (NEGATIVE) SARS-CoV-2 (PCR) (NEGATIVE) 08/09/23 08/09/23 08/09/23 Range/Units 20:55 20:50 20:50 WBC (4.0-10.5) x10^3/uL RBC (4.1-5.6) x10^6/uL Hgb (12.5-18.0) g/dL Hct (42-50) % MCV (78-100) fL MCH (26-32) pg MCHC (32-36) g/dL RDW (11.5-14.0) % Plt Count (150-450) x10^3/uL MPV (7.5-11.0) fL Gran % (36.0-66.0) % Immature Gran % (Auto) (0.00-0.4) % Nucleat RBC Rel Count (0.00-0.1) % Eos # (Auto) (0-0.5) x10^3/uL Immature Gran # (Auto) (0.00-0.03) x10^3u/L Absolute Lymphs (auto) (1.0-4.6) x10^3/uL Absolute Monos (auto) (0.0-1.3) x10^3/uL Absolute Nucleated RBC (0.00-0.01) x10^3u/L Lymphocytes % (24.0-44.0) % Monocytes % (0.0-12.0) % Eosinophils % (0.00-5.0) % Basophils % (0.0-0.4) % Absolute Granulocytes (1.4-6.9) x10^3/uL Basophils # (0-0.4) x10^3/uL PT (9.4-12.5) SECONDS INR (0.8-3.0) APTT (25.1-36.5) SECONDS Sodium (135-145) mmol/L Potassium (3.5-5.1) mmol/L Chloride (98-107) mmol/L Carbon Dioxide (22-30) mmol/L Anion Gap (5-15) MEQ/L BUN (9-20) mg/dL Creatinine (0.66-1.25) mg/dL Estimated GFR ML/MIN Glucose (74-106) mg/dL Lactic Acid (0.4-2.0) Calcium (8.4-10.2) mg/dL Total Bilirubin (0.2-1.3) mg/dL AST (17-59) U/L ALT (0-50) U/L Alkaline Phosphatase (38-126) U/L Troponin I (0.000-0.033) ng/mL Serum Total Protein (6.3-8.2) g/dL Albumin (3.5-5.0) g/dL Urine Color Yellow (Yellow) Urine Appearance Clear (Clear) Urine pH 6.0 (4.6-8.0) Ur Specific [place] 1.015 (1.005-1.030) Urine Protein Negative (Negative) Urine Glucose (UA) Negative (Negative) mg/dL Urine Ketones 40 A (Negative) Urine Blood Large A (Negative) Urine Nitrite Negative (Negative) Urine Bilirubin Negative (Negative) Urine Urobilinogen 1.0 A (0.2) mg/dL Ur Leukocyte Esterase Trace A (Negative) U Hyaline Cast (Auto) NONE SEEN (0-2) /LPF Urine Microscopic RBC >100 A (0-5) /HPF Urine Microscopic WBC 3-5 (0-5) /HPF Ur Epithelial Cells None Seen (None Seen) /HPF Urine Bacteria None Seen (None Seen) /HPF Urine Culture Reflexed NO (NO) Salicylates (2-20) mg/dL Urine Opiates Level NEGATIVE (NEGATIVE) Ur Methadone NEGATIVE (NEGATIVE) Acetaminophen (10-30) ug/ml Urine Barbiturates NEGATIVE (NEGATIVE) Ur Phencyclidine (PCP) NEGATIVE (NEGATIVE) Urine Amphetamine NEGATIVE (NEGATIVE) U Benzodiazepine Level NEGATIVE (NEGATIVE) Urine Cocaine NEGATIVE (NEGATIVE) Urine Marijuana (THC) NEGATIVE (NEGATIVE) Ethyl Alcohol (0-10) mg/dL Influenza Type A Ag NEGATIVE (NEGATIVE) Influenza Type B Ag NEGATIVE (NEGATIVE) RSV (PCR) NEGATIVE (NEGATIVE) SARS-CoV-2 (PCR) NEGATIVE (NEGATIVE) 08/09/23 08/09/23 08/09/23 Range/Units 20:49 20:49 20:36 WBC (4.0-10.5) x10^3/uL RBC (4.1-5.6) x10^6/uL Hgb (12.5-18.0) g/dL Hct (42-50) % MCV (78-100) fL MCH (26-32) pg MCHC (32-36) g/dL RDW (11.5-14.0) % Plt Count (150-450) x10^3/uL MPV (7.5-11.0) fL Gran % (36.0-66.0) % Immature Gran % (Auto) (0.00-0.4) % Nucleat RBC Rel Count (0.00-0.1) % Eos # (Auto) (0-0.5) x10^3/uL Immature Gran # (Auto) (0.00-0.03) x10^3u/L Absolute Lymphs (auto) (1.0-4.6) x10^3/uL Absolute Monos (auto) (0.0-1.3) x10^3/uL Absolute Nucleated RBC (0.00-0.01) x10^3u/L Lymphocytes % (24.0-44.0) % Monocytes % (0.0-12.0) % Eosinophils % (0.00-5.0) % Basophils % (0.0-0.4) % Absolute Granulocytes (1.4-6.9) x10^3/uL Basophils # (0-0.4) x10^3/uL PT (9.4-12.5) SECONDS INR (0.8-3.0) APTT (25.1-36.5) SECONDS Sodium 140 (135-145) mmol/L Potassium 3.4 L (3.5-5.1) mmol/L Chloride 103 (98-107) mmol/L Carbon Dioxide 21 L (22-30) mmol/L Anion Gap 18.4 H (5-15) MEQ/L BUN 15 (9-20) mg/dL Creatinine 0.96 (0.66-1.25) mg/dL Estimated GFR 86.1 ML/MIN Glucose 133 H (74-106) mg/dL Lactic Acid 1.9 (0.4-2.0) Calcium 9.8 (8.4-10.2) mg/dL Total Bilirubin 1.00 (0.2-1.3) mg/dL AST 26 (17-59) U/L ALT 22 (0-50) U/L Alkaline Phosphatase 75 (38-126) U/L Troponin I 0.051 H* (0.000-0.033) ng/mL Serum Total Protein 7.4 (6.3-8.2) g/dL Albumin 5.1 H (3.5-5.0) g/dL Urine Color (Yellow) Urine Appearance (Clear) Urine pH (4.6-8.0) Ur Specific [place] (1.005-1.030) Urine Protein (Negative) Urine Glucose (UA) (Negative) mg/dL Urine Ketones (Negative) Urine Blood (Negative) Urine Nitrite (Negative) Urine Bilirubin (Negative) Urine Urobilinogen (0.2) mg/dL Ur Leukocyte Esterase (Negative) U Hyaline Cast (Auto) (0-2) /LPF Urine Microscopic RBC (0-5) /HPF Urine Microscopic WBC (0-5) /HPF Ur Epithelial Cells (None Seen) /HPF Urine Bacteria (None Seen) /HPF Urine Culture Reflexed (NO) Salicylates < 1.0 L (2-20) mg/dL Urine Opiates Level (NEGATIVE) Ur Methadone (NEGATIVE) Acetaminophen < 10 L (10-30) ug/ml Urine Barbiturates (NEGATIVE) Ur Phencyclidine (PCP) (NEGATIVE) Urine Amphetamine (NEGATIVE) U Benzodiazepine Level (NEGATIVE) Urine Cocaine (NEGATIVE) Urine Marijuana (THC) (NEGATIVE) Ethyl Alcohol < 10 (0-10) mg/dL Influenza Type A Ag (NEGATIVE) Influenza Type B Ag (NEGATIVE) RSV (PCR) (NEGATIVE) SARS-CoV-2 (PCR) (NEGATIVE) 08/09/23 Range/Units 20:36 WBC 13.3 H (4.0-10.5) x10^3/uL RBC 5.34 (4.1-5.6) x10^6/uL Hgb 15.3 (12.5-18.0) g/dL Hct 44.5 (42-50) % MCV 83.3 (78-100) fL MCH 28.7 (26-32) pg MCHC 34.4 (32-36) g/dL RDW 13.2 (11.5-14.0) % Plt Count 150 (150-450) x10^3/uL MPV 11.9 H (7.5-11.0) fL Gran % 85.4 H (36.0-66.0) % Immature Gran % (Auto) 0.4 (0.00-0.4) % Nucleat RBC Rel Count 0.0 (0.00-0.1) % Eos # (Auto) 0.02 (0-0.5) x10^3/uL Immature Gran # (Auto) 0.05 H (0.00-0.03) x10^3u/L Absolute Lymphs (auto) 1.33 (1.0-4.6) x10^3/uL Absolute Monos (auto) 0.50 (0.0-1.3) x10^3/uL Absolute Nucleated RBC 0.00 (0.00-0.01) x10^3u/L Lymphocytes % 10.0 L (24.0-44.0) % Monocytes % 3.8 (0.0-12.0) % Eosinophils % 0.2 (0.00-5.0) % Basophils % 0.2 (0.0-0.4) % Absolute Granulocytes 11.35 H (1.4-6.9) x10^3/uL Basophils # 0.03 (0-0.4) x10^3/uL PT (9.4-12.5) SECONDS INR (0.8-3.0) APTT (25.1-36.5) SECONDS Sodium (135-145) mmol/L Potassium (3.5-5.1) mmol/L Chloride (98-107) mmol/L Carbon Dioxide (22-30) mmol/L Anion Gap (5-15) MEQ/L BUN (9-20) mg/dL Creatinine (0.66-1.25) mg/dL Estimated GFR ML/MIN Glucose (74-106) mg/dL Lactic Acid (0.4-2.0) Calcium (8.4-10.2) mg/dL Total Bilirubin (0.2-1.3) mg/dL AST (17-59) U/L ALT (0-50) U/L Alkaline Phosphatase (38-126) U/L Troponin I (0.000-0.033) ng/mL Serum Total Protein (6.3-8.2) g/dL Albumin (3.5-5.0) g/dL Urine Color (Yellow) Urine Appearance (Clear) Urine pH (4.6-8.0) Ur Specific [place] (1.005-1.030) Urine Protein (Negative) Urine Glucose (UA) (Negative) mg/dL Urine Ketones (Negative) Urine Blood (Negative) Urine Nitrite (Negative) Urine Bilirubin (Negative) Urine Urobilinogen (0.2) mg/dL Ur Leukocyte Esterase (Negative) U Hyaline Cast (Auto) (0-2) /LPF Urine Microscopic RBC (0-5) /HPF Urine Microscopic WBC (0-5) /HPF Ur Epithelial Cells (None Seen) /HPF Urine Bacteria (None Seen) /HPF Urine Culture Reflexed (NO) Salicylates (2-20) mg/dL Urine Opiates Level (NEGATIVE) Ur Methadone (NEGATIVE) Acetaminophen (10-30) ug/ml Urine Barbiturates (NEGATIVE) Ur Phencyclidine (PCP) (NEGATIVE) Urine Amphetamine (NEGATIVE) U Benzodiazepine Level (NEGATIVE) Urine Cocaine (NEGATIVE) Urine Marijuana (THC) (NEGATIVE) Ethyl Alcohol (0-10) mg/dL Influenza Type A Ag (NEGATIVE) Influenza Type B Ag (NEGATIVE) RSV (PCR) (NEGATIVE) SARS-CoV-2 (PCR) (NEGATIVE) - Progress Progress: improved Progress Note: 68-year-old male with a history of epilepsy, diabetes hypertension hypercholesterolemia and occasional breakthrough seizures approximately once every 3 months presents to our ED for evaluation of seizure and altered mental status. Patient's last breakthrough seizure was in June. reports patient had 2 seizures today 1 at 11:00 1 at 3 PM. Patient's second seizure lasted longer than normal. Patient reports a second seizure was generalized and lasted approximately 7 minutes. She states patient was "blue". Seizure eventually resolved. states that patient was at his baseline however after the second seizure he appeared confused. She allowed him to sleep and awoke a few hours later and felt patient appeared confused. So she brought patient to our ED. patient had no complaints of headache neck pain or photophobia. No meningeal signs. Upon arrival to our ED patient had a slightly elevated temperature. He appeared confused. Patient received IV fluids. Potassium was slightly decreased. Patient received 2 g of magnesium and 40 mEq of potassium. Tylenol given for fever. Fever resolved. Troponin elevated at 0.05 1 then 0.053. Patient's presentation can be secondary to a postictal period however in light of the altered mental status the elevated temperature and seizure we advise a lumbar puncture. Both patient and declined the lumbar puncture. feels patient is now functioning at his baseline and states that a lumbar puncture is not necessary. Risks and benefits of obtaining a lumbar puncture were discussed. AMA for signed. In light of patient's elevated troponin patient received heparin and aspirin. EKG sinus rhythm no ischemic changes. Findings consistent with an NSTEMI. Patient will be transferred to outside hospital for further evaluation and treatment. Patient auto accepted at 2:40 AM. The auto accepting physician is Dr. Ruby 08/10/23 02:00 Complexity problem addressed is moderate acute complicated. No critical care time. Complex of data reviewed and analyzed is extensive. Test ordered test reviewed results analyzed and correlated clinically with history and physical examination. Management discussed with receiving team. Patient was auto accepted at 2:40 AM. Risk of complication and or risk of morbidity/mortality of patient management is high. Patient requires hospitalization/transfer to higher level of care. Patient reassessed. Fever resolved. Patient is functioning at his baseline per . Patient is conversant well-appearing no distress. He has no headache no photophobia no nuchal rigidity or neck pain. No meningeal signs. Plan of care established for shared decision making. No social determinants of health present impede follow-up. Family voices no other complaints or concerns at this time. Portions of this note were created with voice recognition technology. There may be grammatical, spelling, punctuation or sound alike errors Counseled pt/family regarding: lab results, diagnosis, rad results - Departure Departure Disposition: Transfer Clinical Impression: Leukocytosis, Hypokalemia, High anion gap metabolic acidosis, Seizure, H ematuria, Elevated troponin Condition: Stable Critical Care Time: No Referrals: MARTIN MORALES MD [Primary Care Provider] - Follow up/PCP as directed
[2023-08-09 20:43] LABS: Absolute Neutrophil Ct (ANC) 11.35 x10^3/uL (1.4-6.9); BASOPHIL % 0.2 % (0.0-0.4); Basophil (Absolute #) 0.03 x10^3/uL (0-0.4); Eosinophil % 0.2 % (0.00-5.0); Eosinophil (Absolute #) 0.02 x10^3/uL (0-0.5); Hematocrit 44.5 % (42-50); Hemoglobin 15.3 g/dL (12.5-18.0); IMMATURE GRAN # 0.05 x10^3u/L (0.00-0.03); IMMATURE GRAN % 0.4 % (0.00-0.4); Lymphocyte (Absolute #) 1.33 x10^3/uL (1.0-4.6); Mean Cell Volume 83.3 fL (78-100); Mean Corpuscular Hemoglobin 28.7 pg (26-32); Mean Corpuscular Hgb Concent. 34.4 g/dL (32-36); Mean Platelet Volume 11.9 fL (7.5-11.0); Monocytes % 3.8 % (0.0-12.0); Neutrophil % 85.4 % (36.0-66.0); Platelet Count 150 x10^3/uL (150-450); Red Blood Count 5.34 x10^6/uL (4.1-5.6); Red Cell Distribution Width 13.2 % (11.5-14.0); White Blood Count 13.3 x10^3/uL (4.0-10.5)
[2023-08-09] MEDS: Sodium Chloride 0.9% 1000 ML 1,000 ML IV STA (20:52)
[2023-08-09] MEDS ORDERED: Sodium Chloride 0.9% 1000 ML 1,000 ML ONE (20:52)
[2023-08-09] MEDS ORDERED: TYLENOL 325 MG ONE (20:52)
[2023-08-09] MEDS: TYLENOL 325 MG PO STA (20:53)
[2023-08-09 21:12] LABS: Appearance Clear (Clear); Bacteria None Seen /HPF (None Seen); Bilirubin Negative (Negative); Blood Large (Negative); Epithelial Cells None Seen /HPF (None Seen); Glucose, Urine Negative (Negative); Hyaline Casts NONE SEEN /LPF (0-2); Ketones 40 (Negative); Leukocyte Esterase Trace (Negative); Nitrite Negative (Negative); Protein,Urine Dip Negative (Negative); RBC >100 /HPF (0-5); Specific Gravity 1.015 (1.005-1.030)
[2023-08-09 21:15] LABS: ACETAMINOPHEN < 10 ug/ml (10-30); ALBUMIN 5.1 g/dL (3.5-5.0); ALKALINE PHOSPHATASE 75 U/L (38-126); ANION GAP 18.4 MEQ/L (5-15); BLOOD UREA NITROGEN 15 mg/dL (9-20); CHLORIDE 103 mmol/L (98-107); Calcium 9.8 mg/dL (8.4-10.2); Carbon Dioxide 21 mmol/L (22-30); Creatinine 1 0.96 mg/dL (0.66-1.25); EST GLOMERULAR FILTRATION RATE 86.1 ML/MIN; ETHYL ALCOHOL < 10 mg/dL (0-10); Glucose 133 mg/dL (74-106); Potassium 3.4 mmol/L (3.5-5.1); SALICYLATE < 1.0 mg/dL (2-20); SGOT/AST 26 U/L (17-59); SGPT/ALT 22 U/L (0-50); SODIUM 140 mmol/L (135-145); Total Protein 7.4 g/dL (6.3-8.2)
[2023-08-09 21:24] LABS: Amphetamine,Urine NEGATIVE (NEGATIVE); Barbiturate,Urine NEGATIVE (NEGATIVE); Benzodiazepine,Urine NEGATIVE (NEGATIVE); Cocaine,Urine NEGATIVE (NEGATIVE); Methadone,Urine NEGATIVE (NEGATIVE); Opiate,Urine NEGATIVE (NEGATIVE); PCP,Urine NEGATIVE (NEGATIVE); THC,Urine NEGATIVE (NEGATIVE)
[2023-08-09] MEDS ORDERED: Magnesium 1 Gm / 100 Ml D5W*** 100 ML IV ONE ×2 (21:32→22:13)
[2023-08-09] MEDS ORDERED: POTASSIUM CHLORIDE 20 mEq IN WATER 100ML 100 ML IV ONE ×2 (21:32→23:39)
[2023-08-09 21:35] LABS: INFLUENZA A NEGATIVE (NEGATIVE); INFLUENZA B NEGATIVE (NEGATIVE); RESPIRATORY SYNCTIAL VIRUS NEGATIVE (NEGATIVE); SARS-CoV-2 Xpert Express NEGATIVE (NEGATIVE)
[2023-08-09 21:37] LABS: ADD URINE CULTURE? NO (NO)
[2023-08-09] MEDS: Magnesium 1 Gm / 100 Ml D5W*** 100 ML IV SCH (21:38)
[2023-08-09] MEDS: POTASSIUM CHLORIDE 20 mEq IN WATER 100ML 20 MEQ/100 ML BAG IV SCH (21:38)
[2023-08-09] MEDS: Sodium Chloride 0.9% 1000 ML 1,000 ML IV SCH (21:45)
[2023-08-10 01:29] VITALS: TEMP 99
[2023-08-10] MEDS ORDERED: BABY ASPIRIN 81 MG CHEW ONE (02:02)
[2023-08-10] MEDS ORDERED: Heparin 25,000 units/D5W: USE ORDER SET PROTO 25,000 UNITS/250 ML BAG IV ONE (02:02)
[2023-08-10] MEDS ORDERED: HEPARIN 5000 UNITS/0.5 ML (HIGH RISK MED) ONE (02:02)
[2023-08-10] MEDS: HEPARIN 5000 UNITS/0.5 ML (HIGH RISK MED) IV ONE (02:07)
[2023-08-10] MEDS: BABY ASPIRIN 81 MG CHEW PO ONE (02:07)
[2023-08-10 02:09] LABS: Hematocrit 40.3 % (42-50); Hemoglobin 13.5 g/dL (12.5-18.0); Mean Corpuscular Hemoglobin 28.5 pg (26-32); Mean Corpuscular Hgb Concent. 33.5 g/dL (32-36); Mean Platelet Volume 11.6 fL (7.5-11.0); Platelet Count 138 x10^3/uL (150-450); Red Blood Count 4.74 x10^6/uL (4.1-5.6); Red Cell Distribution Width 13.3 % (11.5-14.0); White Blood Count 10.6 x10^3/uL (4.0-10.5)
[2023-08-10 02:16] VITALS: BP 139/80; PULSE 79; RESP 18
[2023-08-10 02:25] LABS: INR 1.02 (0.8-3.0); PROTIME 11.1 SECONDS (9.4-12.5); PTT 26.5 SECONDS (25.1-36.5)
[2023-08-10] MEDS: Heparin 25,000 units/D5W: USE ORDER SET PROTO 25,000 UNITS/250 ML BAG IV SCH ×2 (02:40→02:47)
[2023-08-10 02:47] VITALS: O2SAT 95
--- NOTE | 2023-08-10 08:43 | XRAY ---
Indication: Fever. Comparison: June 09, 2023 Portable chest lest inflated and remains clear. Heart not enlarged. Bony thorax again demonstrates osteopenia and old left rib fractures. No new/acute findings.
--- NOTE | 2023-08-10 08:43 | XRAY ---
Indication: Seizure. Stroke. Multiple contiguous axial images obtained through the head without contrast. Comparison: February 19, 2021 Again age-appropriate global atrophy and mild periventricular degenerative micro-ischemia bilaterally. No acute intracranial hemorrhage, abnormal extra-axial fluid collection, or mass effect. Fourth ventricle is midline without hydrocephalus. Bony calvarium intact. Visualized paranasal sinuses and mastoid air cells are clear. Impression: Continued nonacute senile brain.
== END 2023-08-10 03:12 | disposition short-term general hospital (02) ==
LOC: ED 20:17
DX: G40.909 Epilepsy, unspecified, not intractable, without status epilepticus (principal); D72.829 Elevated white blood cell count, unspecified; E87.6 Hypokalemia; E87.20 Acidosis, unspecified; R31.9 Hematuria, unspecified; R77.8 Other specified abnormalities of plasma proteins; I21.4 Non-ST elevation (NSTEMI) myocardial infarction; E78.5 Hyperlipidemia, unspecified; I10 Essential (primary) hypertension; E11.9 Type 2 diabetes mellitus without complications; Z79.84 Long term (current) use of oral hypoglycemic drugs; Z79.899 Other long term (current) drug therapy
CPT/HCPCS: 0241U; 36000; 36415; 51702; 70450; 71045; 80053; 80143; 80179; 80307; 81001; 82077; 83605; 84484; 85025; 85027; 85610; 85730; 87040; 93005; 93041; 94760; 96360; 96361; 96374; 99285; J1644; J3475; J3480; A9270-GY

== ENCOUNTER 2025-03-11 12:41 | Emergency (ER) | payer MEDICARE ==
[2025-03-11 12:48] VITALS: TEMP 97.3; O2SAT 98
--- NOTE | 2025-03-11 13:17 | ERPHSYRPT ---
- History of Present Illness Time Seen by Provider: 03/11/25 13:10 Source: patient Exam Limitations: no limitations Patient Subjective Stated Complaint: PT STATES HE CANNOT HEAR OUT OF HIS LEFT EAR Triage Nursing Assessment: PT ARRIVES TO THE ED VIA PRIVATE VEHICLE WITH HIS . PT IS ABLE TO AMBULATE INTO THE ED WITHOUT DIFFICULTY. PT IS ALERT AND ORIENTED X4, NO SIGNS OF RESPIRATORY DISTRESS, PULSES EQUAL BILATERALLY. PT STATES THAT FOR THE PAST 6 WEEKS HE HAS BEEN HAVING TROUBLE WITH HIS EARS. PT WAS SEEN AT HIS PCP AND WAS DIAGNOSED WITH A SINUS INFECTION AND EAR INFECTION. PT WAS STARTED ON ANTIBIOTICS AND STEROIDS. PT STATES THAT THIS DID NOT MAKE IT ANY BETTER AND HE CAN NO LONGER HEAR OUT OF HIS LEFT EAR. PT IS HAVING DRAINAGE THAT IS BLOODY FROM HIS LEFT EAR AND STATES THAT HE IS IN 5/10 ACHING PAIN TO THE LEFT EAR. PT STATES THAT HE HAS ALSO BEEN USING OVER THE COUNTER EAR DROPS AND WAX REMOVAL KITS. ON EXAM PT EAR CANAL IS VERY BLOODY WITH LITTLE AMOUNT OF WAX NOTED. Physician History: 69-year-old male history of epilepsy hypertension hyperlipidemia type 2 diabetes presents to our ED with his for evaluation of bleeding to his left ear. Patient has had an ear infection for 6 weeks. Patient has been on antibiotics he is currently on doxycycline and cleansing his left ear with saline. states that his hearing appears to be getting worse. Patient has been experiencing intermittent bloody drainage as well. Patient rates his pain 5 out of 10. No trauma. No fever. No headache. Symptoms are mild to moderate in intensity. No specific worsening or improving factors. Patient voices no other complaints or concerns at this time. Portions of this note were created with voice recognition technology. There may be grammatical, spelling, punctuation or sound alike errors Timing/Duration: week(s) (6 weeks) Severity: moderate Modifying Factors: Improves With: nothing Associated Symptoms: denies symptoms Allergies/Adverse Reactions: Penicillins Allergy (Verified 03/11/25 12:48) Home Medications: ALPRAZolam 0.5 MG [xanAX 0.5 MG] 0.5 mg PO HS 10/04/17 [History] Bisoprolol/Hydrochlorothiazide [Bisoprolol-Hctz 10-6.25 mg Tab] 1 tab PO DAILY 10/04/17 [History] Pravastatin Sodium 40 mg PO HS 10/04/17 [History] Sertraline HCl 100 mg PO HS 10/04/17 [History] lamoTRIgine [Lamotrigine] 50 mg PO BID 10/04/17 [History] levETIRAcetam [Levetiracetam] 1,000 mg PO TID 10/04/17 [History] Etodolac 400 mg [Lodine 400 mg] 400 mg PO BID 06/20/21 [History] Metformin HCl 500 mg [Glucophage 500 MG] 1 ea PO DAILY 06/20/21 [History] ARIPiprazole [Aripiprazole] 5 mg PO DAILY 04/07/22 [History] Montelukast Sodium 10 mg [Singulair 10 MG] 10 mg PO DAILY 04/07/22 [History] Hx Tetanus, Diphtheria Vaccination/Date Given: Yes Hx Influenza Vaccination/Date Given: No Hx Pneumococcal Vaccination/Date Given: No Immunizations Up to Date: Yes Travel Risk - International Travel Have you traveled outside of the country in past 3 weeks: No - Emerging Infectious Disease Are you exhibiting symptoms associated with any current EIDs: No - Review of Systems All Other Systems: Reviewed and Negative - Past Medical History Pertinent Past Medical History: Yes Neurological History: Epilepsy ENT History: No Pertinent History Cardiac History: High Cholesterol, Hypertension Respiratory History: No Pertinent History Endocrine Medical History: Diabetes Type II Musculoskeletal History: No Pertinent History GI Medical History: GI Bleed, Ulcer, Other History: No Pertinent History Psycho-Social History: Depression Male Reproductive Disorders: No Pertinent History Other Medical History: perforated bowel, covid 19 - Past Surgical History Past Surgical History: No Neuro Surgical History: No Pertinent History Cardiac: No Pertinent History Respiratory: No Pertinent History Gastrointestinal: No Pertinent History Genitourinary: No Pertinent History Musculoskeletal: No Pertinent History Male Surgical History: No Pertinent History Significant Family History: no pertinent family hx - Social History Smoking Status: Former smoker Exposure to second hand smoke: Yes Drug Use: none - Social Determinants of Health Will the patient participate in the screening: Yes Do you worry about a steady place to live?: No Do you have any problems with any of the following?: No known problems In the past 12 months,have you had to go without utilities?: No Transportation Issues: No Has anyone in your support network made you feel unsafe?: No Have you or anyone in your house had to go w/o enough food: No - Nursing Vital Signs Nursing Vital Signs: Initial Vital Signs Temperature 97.3 F 03/11/25 12:47 Pulse Rate 79 03/11/25 12:47 Respiratory Rate 15 03/11/25 12:47 Blood Pressure 143/77 03/11/25 12:47 O2 Sat by Pulse Oximetry 98 03/11/25 12:47 Pain Scale Pain Intensity 5 - Physical Exam General Appearance: no apparent distress, alert Eye Exam: PERRL/EOMI, eyes nml inspection Ears, Nose, Throat Exam: normal ENT inspection, pharynx normal, moist mucous membranes, other (Left TM appears to have necrotic tissue at its base. There is some dried blood at this location. Difficult to visualize the tympanic membrane. No mastoid tenderness. Difficulty hearing left ear. No dizziness) Neck Exam: normal inspection, non-tender, supple, full range of motion Respiratory Exam: normal breath sounds, lungs clear, No respiratory distress Cardiovascular Exam: regular rate/rhythm, normal heart sounds, normal peripheral pulses Gastrointestinal/Abdomen Exam: soft, normal bowel sounds, No tenderness, No mass Back Exam: normal inspection, normal range of motion, No CVA tenderness, No vertebral tenderness Extremity Exam: normal inspection, normal range of motion, pelvis stable Neurologic Exam: alert, oriented x 3, cooperative, normal mood/affect, sensation nml, No motor deficits Skin Exam: normal color, warm, dry, No rash Lymphatic Exam: No adenopathy SpO2 Interpretation: normal SpO2: 98 O2 Delivery: Room Air - Course Nursing assessment & vital signs reviewed: Yes - Progress Progress: improved Progress Note: 69-year-old male history of epilepsy hypertension hyperlipidemia type 2 diabetes presents to our ED with his for evaluation of bleeding to his left ear. Patient has had an ear infection for 6 weeks. Patient has been on antibiotics he is currently on doxycycline and cleansing his left ear with saline. states that his hearing appears to be getting worse. Patient has been experiencing intermittent bloody drainage as well. Patient rates his pain 5 out of 10. Physical exam reveals some dried blood in the left ear canal along with what appears to be necrotic tissue. The tympanic membrane is difficult to visualize. Patient is hard of hearing from this ear. No dizziness. No mastoid tenderness. We contacted [facility] in [place]. They will contact patient today for an appointment time. Patient advised to be sure to answer his phone when they call. We also advised patient discontinue the eardrops. Patient agrees to do so. Patient received Tylenol for pain control. at bedside. They voiced no other complaints or concerns at this time. Portions of this note were created with voice recognition technology. There may be grammatical, spelling, punctuation or sound alike errors History obtained from patient and his . Differential diagnoses include otitis media, otitis externa, trauma Complexity of problems addressed is moderate acute complicated. No critical care time. Complexity of data reviewed and analyzed is moderate. No specialized testing ordered. Management discussed with [facility] clinic. They will see patient today. Risk of complication and or risk of morbidity/mortality of patient management is low. Vital stable. Time spent to discharge patient is approximately 15 minutes. Plan of care established for shared decision making. No social determinants of health present to impede follow-up. Portions of this note were created with voice recognition technology. There may be grammatical, spelling, punctuation or sound alike errors 03/11/25 13:29 Counseled pt/family regarding: diagnosis, need for follow-up - Departure Departure Disposition: Home Clinical Impression: Bleeding from left ear, Ear pain, left Condition: Stable Critical Care Time: No Referrals: MARTIN MORALES MD [Primary Care Provider, [facility]] - Follow up/PCP as directed Additional Instructions: Discharge/Care Plan EZRA BLANCO was seen on 03/11/25 in the Emergency Room. The patient was counseled regarding Diagnosis,Lab results, Imaging studies, need for follow up and when to return to the Emergency Room. Prescriptions given: Discharge Note I have spoken with the patient and/or caregivers. I have explained the patient's condition, diagnosis and treatment plan based on the information available to me at this time. I have answered the patient's and/or caregiver's questions and addressed any concerns. The patient and/or caregivers have as good understanding of the patient's diagnosis, condition and treatment plan as can be expected at this point. The vital signs have been stable. The patient's condition is stable and appropriate for discharge from the emergency department. The patient will pursue further outpatient evaluation with the primary care physician or other designated or consulting physician as outlined in the discharge instructions. The patient and/or caregivers are agreeable to this plan of care and follow-up instructions have been explained in detail. The patient and/or caregivers have received these instruction. The patient/and or caregivers are aware that any significant change in condition or worsening of symptoms should prompt an immediate return to this or the closest emergency department or call 911.
[2025-03-11] MEDS ORDERED: TYLENOL 325 MG ONE (13:30)
[2025-03-11] MEDS: TYLENOL 325 MG PO ONE (13:31)
[2025-03-11 13:33] VITALS: BP 159/73; PULSE 70; RESP 16
== END 2025-03-11 13:41 | disposition home or self-care (01) ==
LOC: ED 12:41
DX: H92.22 Otorrhagia, left ear (principal); H92.02 Otalgia, left ear; I10 Essential (primary) hypertension; E11.9 Type 2 diabetes mellitus without complications; Z79.84 Long term (current) use of oral hypoglycemic drugs; Z79.899 Other long term (current) drug therapy